=== PATIENT | female | born 2000 | race Caucasian/White ===

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

== ENCOUNTER 2020-02-11 00:07 | Emergency (ER) | payer SELFPAY ==
[~2020-02-11] VITALS: Ht 175 cm; Wt 81.0 kg
[~2020-02-11 00:07] MED LIST: CEPH500T PO; MEDR150D6; PRD20T PO; birth control
[2020-02-11] MEDS ORDERED: LACTATED RINGERS 1,000 ML IV ONE (00:11)
--- OUTSIDE RECORDS SUMMARY | 2020-02-11 00:14 | XMS REPORT ---
Author Author Brandi SAVAGE [facility] Address [address] [place], [place] [address] Care Team Providers Care Mapping Engineer Name Role Phone SONNY SAVAGE PCP SONNY SAVAGE PreferredProvider Allergies and Adverse Reactions Name Reaction Notes Xanax vomiting Plan of Treatment Not available. Medications Active Name Start Date Estimated Completion Date SIG Co mments Viibryd 10 mg (7)- 20 mg (23) oral tablets,dose pack 09/09/2019 take as directed Depo-Provera 150 mg/mL intramuscular suspension 09/09/2019 inject 150 mg by intramuscular route every 3 months Name Start Date Expiration Date SIG Comments Xanax 0.25 mg oral tablet 08/02/2017 09/01/2017 take 1 tablet (0.25 mg) by oral route BID PRN anxiety prednisone 20 mg oral tablet 08/06/2018 08/22/2018 4X2 days 3x2 days 2x2 days 1x2 days Discontinued Name Start Date Discontinued Date SIG Comments citalopram 20 mg oral tablet 09/06/2017 09/18/2018 daniel e 1 tablet (20 mg) by oral route once daily for 90 days Problem List Not available. Vital Signs Date Time BP-Sys(mm[Hg] BP-Princess(mm[Hg]) HR(bpm) RR(rpm) Temp WT HT HC BMI BSA BMI Percentile O2 Sat(%) 09/10/2019 2:01:00 PM 128 mm[Hg] 78 mm[Hg] 94 {beats}/min 18 rpm 98.4 F 164.062 lbs 69 in 24.2275 kg/m2 1.9034 m2 75 % 99 % 02/24/2019 2:56:00 PM 110 mm[Hg] 60 mm[Hg] 68 {beats}/min 16 rpm 98.4 F 163 lbs 98 % 12/13/2018 8:38:00 AM 122 mm[Hg] 72 mm[Hg] 78 {beats}/min 18 rpm 98.1 F 156 lbs 69 in 23.0369 kg/m2 1.856 m2 67.5 % 98 % 09/18/2018 9:19:00 AM 112 mm[Hg] 66 mm[Hg] 67 {beats}/min 98.1 F 15 5 lbs 69 in 22.89 kg/m2 1.85 m2 66.9 % 98 % 08/06/2018 1:36:00 PM 126 mm[Hg] 72 mm[Hg] 74 {beats}/min 18 rpm 98.2 F 155 lbs 69 in 22.8893 kg/m2 1.8501 m2 67.2 % 99 % 07/11/2018 10:57:00 AM 120 mm[Hg] 72 mm[Hg] 82 {beats}/min 18 rpm 99.3 F 152 lbs 69 in 22.45 kg/m2 1.83 m2 63.2 % 98 % 04/15/2018 9:11:00 AM 120 mm[Hg] 80 mm[Hg] 78 {beats}/min 98 rpm 98.6 F 155 lbs 69 in 22.8893 kg/m2 1.8501 m2 68.2 % 98 % 08/02/2017 4:10:00 PM 104 mm[Hg] 78 mm[Hg] 82 {beats}/min 16 rpm 98 F 144 lbs 69 in 21.2649 kg/m2 1.78 m2 54 % 99 % Social History Name Description Comments Single Tobacco Never smoker Alcohol Never Uses seatbelts History of Procedures Date Ordered Description Order Status 07/11/2018 12:00 AM THERAPEUTIC PROPHYLACTIC/DX INJECTION CHEEK BQ/IM Reviewed 07/11/2018 12:00 AM Decadron 8mg Injection, [facility] Medicaid Rev iewed 07/11/2018 12:00 AM Depo-Medrol 80 Mg Injection, [facility] Medicai d Reviewed 07/16/2018 12:00 AM X-RAY EXAM NECK SPINE 2-3 VW Returned 09/18/2018 12:00 AM X-RAY EXAM L-2 SPINE 4/>VWS Returned 12/13/2018 12:00 AM Splint, prefabricated, wrist or ankle Re viewed Results Summary Not available. History Of Immunizations Not available. History of Past Illness Name Date of Onset Comments No significant medical history Test anxiety Aug 02 2017 4:10PM Stress Aug 02 2017 4:10PM Encounter for routine child health examination without abnormal findings Apr 15 2018 9:11AM Gastroenteritis Jul 11 2018 10:58AM Non-intractable vomiting with nausea, unspecified vomi ting type Jul 11 2018 10:58AM Mild Chronic Cervicalgia Jul 11 2018 10:58AM Cervicalgia Jul 16 2018 8:03AM Neck pain Aug 06 2018 1:37PM Moderate Acute Mid back pain Unresponsive to treatment Aug 06 2018 1:37PM Moderate Acute Cervicalgia Unresponsive to treatment Aug 06 2018 1:37PM Tension headache Aug 06 2018 1:37PM Lumbago without sciatica Sep 18 2018 9:23AM Cervicalgia Sep 18 2018 9:23AM Cervicogenic headache Sep 18 2018 9:23AM Spasm Sep 18 2018 9:23AM Sprain of unspecified ligament of right ankle, initial encounter Dec 13 2018 8:38AM Strain of unspecified muscle and tendon at ankle and foot level, right foot, initial encounter Dec 13 2018 8:38AM Ankle pain, right Dec 13 2018 8:38AM Mild Acute Left Costal chondritis Feb 24 2019 2:57PM 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 Sep 10 2019 2:02PM Current mild episode of major depressive disorder, unspecified whether recurrent Sep 10 2019 2:02PM Encounter for initial prescription of injectable contr aceptive Sep 10 2019 2:02PM Payers Insurance Name Company Name Plan Name Plan Number Policy Number [place] [employer] Group Number Start Date [facility] Fin ancial Timothy 50 PERCENT October [facility] [id number] N/A [facility] [id number] N/A History of Encounters Visit Date Visit Type Provider 09/09/2019 Office visit SONNY GRAHAM 02/24/2019 Office visit SONNY GRAHAM 12/13/2018 Office visit SONNY GRAHAM 09/18/2018 Office visit Iggy Fox DO 08/06/2018 Office visit SONNY GRAHAM 07/11/2018 Office visit SONNY GRAHAM 04/15/2018 Office visit SONNY GRAHAM 08/02/2017 Office visit SONNY GRAHAM
--- OUTSIDE RECORDS SUMMARY | 2020-02-11 00:14 | XMS REPORT ---
Author Author Brandi RICHARDSON [facility] Address [address] [place] [address] Care Team Providers Care Engineering Mathematician Name Role Phone AUSTIN RICHARDSON Unavailable PROBLEMS Type Condition ICD9-CM Code [id number] Code Onset Dates Condition S tatus SNOMED Code Problem Amenorrhea N91.2 Active 10856072 Problem Irregular menstrual bleeding N92.6 A ctive 27913762 Problem Other atopic dermatitis and related conditions L20 .89 Active 55758478 Problem Rhinosinusitis J32.9 Active 66638 4004 ALLERGIES No Information ENCOUNTERS Encounter Location Date Diagnosis [facility] [id number] [place] [phone] Dec, [facility] [id number] [place] [phone] Dec, Irregular menstrual bleeding N92.6 and Trying to get Z78.9 [id number] [place] [address] [phone] Dec, [facility] [id number] [place], [place] [id number] 2-4001 Nov, Pain of both breasts N64.4 [facility] [address] [place], [place] [id number] [place], [place] [address] 2-4001 Sep, Dizzy R42 and Amenorrhea N91.2 [facility] [address] [facility] [id number] [address] [place] [address] Sep, Rhinosinusitis J32.9 [facility] [address] [facility] [id number] [place] [id number] Jul, Contraception management Z30.9 and Contr aceptive education Z30.[id number] [id number] [id number] Nov, Oral health maintenance status requiring routine preventive dental care K08.9 [facility] [address] [id number] [id number] Jul, Oral health maintenance status requiring routine preventive dental care K08.9 and Dental examination Z01.20 [facility] [address] [facility] [id number] [address] [place] [phone] January, [facility] [address] [facility] [id number] [address] [place] [phone] Apr, Sports physical Z02.5 ; Exer cise counseling Z71.89 and Dietary counseling Z71.3 [facility] [id number] [place] [phone] Nov, Body aches R52 and Fever and chills R50. 9 [facility] [address] [facility] [id number] [place] [id number] Apr, Sports physical Z02.5 ; Diet juaquin counseling Z71.3 and Exercise counseling Z71.89 [facility] [address] [facility] [id number] [address] [place] [phone] Apr, Sports physical V70.3 and [place] RDASIL (HPV) DX V04.89 [facility] [address] [facility] [id number] [address] [place] [phone] Dec, [facility] [address] [facility] [id number] [address] [place] [address] Dec, [facility] [address] [facility] [id number] [address] [place] [phone] Nov, [facility] [address] [facility] [id number] [address] [place] [phone] Nov, [facility] [address] [facility] [id number] [address] [place] [address] Nov, [facility] [address] [facility] [id number] [address] [place] [phone] Nov, [facility] [address] [id number] [address] [place] [phone] Nov, [facility] [address] [id number] [address] [place] [phone] Nov, [facility] [address] [id number] [address] [place] [phone] Apr, [facility] [address] [id number] [address] [place] [phone] Apr, [facility] [address] [id number] [address] [place] [phone] Sep, [facility] [address] [id number] [address] [place] [phone] Sep, [facility] [address] [id number] [address] [place] [phone] January, [facility] [address] [id number] [address] [place] [phone] Nov, [facility] [address] [id number] [address] [place] [phone] Jul, [facility] [address] [id number] [address] [place] [phone] Mar, IMMUNIZATIONS No Known Immunizations SOCIAL HISTORY Never Assessed REASON FOR VISIT PLAN OF CARE VITAL SIGNS Height 67.5 in 2014-04-15 Weight 123.9 lbs 2014-04-15 Temperature 98 degrees Fahrenheit 2014-04-15 Heart Rate 72 bpm 2014-04-15 Respiratory Rate 18 2014-04-15 Blood pressure systolic 116 mmHg 2014-04-15 Blood pressure diastolic 70 mmHg 2014-04-15 MEDICATIONS Unknown Medications RESULTS No Results PROCEDURES Procedure Date Ordered Result Body Site VISUAL ACUITY SCREEN Apr 15, 2014 INSTRUCTIONS MEDICATIONS ADMINISTERED No Known Medications MEDICAL (GENERAL) HISTORY Type Description Date Surgical History none Hospitalization History n/a
--- OUTSIDE RECORDS SUMMARY | 2020-02-11 00:14 | XMS REPORT ---
Author Author Brandi MESA Organization [facility] Address [address] [place] [address] Care Team Providers Care Foreign Exchange Student Coordinator Name Role Phone HANH MESA Unavailable PROBLEMS Type Condition ICD9-CM Code [id number] Code Onset Dates Condition S tatus SNOMED Code Problem Amenorrhea N91.2 Active 43551936 Problem Irregular menstrual bleeding N92.6 A ctive 53942906 Problem Other atopic dermatitis and related conditions L20 .89 Active 63841351 Problem Rhinosinusitis J32.9 Active 21065 4004 ALLERGIES No Information ENCOUNTERS Encounter Location Date Diagnosis [facility] [id number] [place] [phone] Dec, [facility] [id number] [place] [address] 2-4001 Dec, Irregular menstrual bleeding N92.6 and Trying to get Z78.9 [facility] [id number] [place] [phone] Dec, [facility] [id number] [place] [address] 6[address] 2-4001 Nov, Pain of both breasts N64.4 [facility] [id number] [place] [address] [phone] Sep, Dizzy R42 and Amenorrhea N91.2 [facility] [id number] [place] [address] Sep, Rhinosinusitis J32.9 [facility] [address] [facility] [id number] Pepito FITZPATRICK S [id number] Jul, Contraception management Z30.9 and Contr aceptive education Z30.09 [facility] [address] [id number] [id number] Nov, Oral health maintenance status requiring routine preventive dental care K08.9 [facility] [address] [id number] [id number] Jul, Oral health maintenance status requiring routine preventive dental care K08.9 and Dental examination Z01.20 [facility] [address] [facility] [id number] [address] [place] [phone] January, [facility] [address] [facility] [id number] [address] [place] [phone] Apr, Sports physical Z02.5 ; Exer cise counseling Z71.89 and Dietary counseling Z71.3 [facility] X[id number] [place] [phone] Nov, Body aches R52 and Fever and chills R50. 9 [facility] [address] [facility] [id number] [place] [id number] Apr, Sports physical Z02.5 ; Diet juaquin counseling Z71.3 and Exercise counseling Z71.89 [facility] [address] [facility] [id number] [address] [place] [phone] Apr, Sports physical V70.3 and [place] RDASIL (HPV) DX V04.89 [facility] [address] [facility] [id number] [address] [place] [phone] Dec, [facility] [address] [facility] [id number] [address] [place] [phone] Dec, [facility] [address] [facility] [id number] [address] [place] [phone] Nov, [facility] [address] [facility] [id number] [address] [place] [phone] Nov, [facility] [address] [facility] [id number] [address] [place] [phone] Nov, [facility] [address] [facility] [id number] [address] [place] [phone] Nov, [facility] [address] [id number] [address] [place] [phone] Nov, [facility] [address] [id number] [address] [place] [phone] Nov, [facility] [address] [id number] [address] [place] [phone] Apr, [facility] [address] [id number] [address] [place] [phone] Apr, [facility] [address] [id number] [address] [place] [phone] Sep, [facility] [address] [id number] [address] [place] [phone] Sep, [facility] [address] [id number] [address] [place] [phone] January, [facility] [address] [id number] [address] [place] [phone] Nov, [facility] [address] [id number] [address] [place] [phone] Jul, [facility] [address] [id number] [address] [place] [phone] Mar, IMMUNIZATIONS No Known Immunizations SOCIAL HISTORY Never Assessed REASON FOR VISIT PLAN OF CARE VITAL SIGNS Weight 124.6 lbs 2013-09-06 Temperature 98.1 degrees Fahrenheit 2013-09-06 Heart Rate 80 bpm 2013-09-06 Respiratory Rate 18 2013-09-06 Blood pressure systolic 107 mmHg 2013-09-06 Blood pressure diastolic 68 mmHg 2013-09-06 MEDICATIONS Unknown Medications RESULTS No Results PROCEDURES No Known procedures INSTRUCTIONS MEDICATIONS ADMINISTERED No Known Medications MEDICAL (GENERAL) HISTORY Type Description Date Surgical History none Hospitalization History n/a
--- OUTSIDE RECORDS SUMMARY | 2020-02-11 00:14 | XMS REPORT ---
Author Author Brandi BOONE [facility] Address [address] [place] [address] Care Team Providers Care Title Processor Name Role Phone COLT BOONE Unavailable PROBLEMS Type Condition ICD9-CM Code OIK95-XB Code Onset Dates Condition S tatus SNOMED Code Problem Amenorrhea N91.2 Active 11380748 Problem Irregular menstrual bleeding N92.6 A ctive 57340140 Problem Other atopic dermatitis and related conditions L20 .89 Active 14325814 Problem Rhinosinusitis J32.9 Active 95640 4004 ALLERGIES No Information ENCOUNTERS Encounter Location Date Diagnosis [facility] [id number] [place] [address] [phone] Dec, 2019 Irregular menstrual bleeding N92.6 and Trying to get Z78.9 [facility] [id number] [place] [address] [phone] Dec, [facility] [id number] [place] [address] [phone] Nov, Pain of both breasts N64.4 [facility] [id number] [place] [address] [phone] Sep, Dizzy R42 and Amenorrhea N91.2 [facility] [address] [facility] [id number] [address] [address] Sep, Rhinosinusitis J32.9 [facility] [address] [id number] [place] [id number] 13 Jul, 2019 Contraception management Z30.9 and Contr aceptive education Z30.09 [facility] [address] [facility] [id number] [id number] Nov, Oral health maintenance status requiring routine preventive dental care K08.9 [facility] [address] [facility] [id number] [place] [id number] 13 Jul, 2018 Oral health maintenance status requiring routine preventive dental care K08.9 and Dental examination Z01.20 [facility] [address] [facility] [id number] [address] [place] [phone] 24 Jan, 2018 [facility] [address] [facility] [id number] [address] [place] [phone] 14 Apr, 2017 Sports physical Z02.5 ; Exer cise counseling Z71.89 and Dietary counseling Z71.3 [facility] XUAN [employer]is [employer] [id number] [place] [phone] 17 Nov, 2016 Body aches R52 and Fever and chills R50. 9 [facility] [address] [facility] [id number] [place] [phone] Apr, Sports physical Z02.5 ; Diet juaquin counseling Z71.3 and Exercise counseling Z71.89 [facility] [address] [facility] [id number] [address] [place] [phone] Apr, Sports physical V70.3 and GA RDASIL (HPV) DX V04.89 [facility] [address] [facility] [id number] [address] [place] [phone] Dec, [facility] [address] [facility] [id number] [address] [place] [phone] Dec, [facility] [address] [facility] [id number] [address] [place] [phone] Nov, [facility] [address] [facility] [id number] [address] [place] [phone] Nov, [facility] [address] [facility] [id number] [address] [place] [phone] Nov, [facility] [address] [facility] [id number] [address] [place] [phone] Nov, [facility] [address] [facility] [id number] [address] [place] [phone] Nov, [facility] [address] [id number] [address] [place] [phone] Nov, [facility] [address] [id number] [address] [place] [phone] Apr, [facility] [address] [id number] [address] [place] [phone] Apr, [facility] [address] [id number] [address] [place] [phone] Sep, [facility] [address] [id number] [address] [place] [phone] Sep, [facility] [address] [id number] [address] [place] [phone] January, [facility] [address] [id number] [address] [place] [phone] Nov, [facility] [address] [id number] [address] [place] [phone] Jul, [facility] [address] [id number] [address] [place] [phone] Mar, IMMUNIZATIONS No Known Immunizations SOCIAL HISTORY Never Assessed REASON FOR VISIT Fluoride PLAN OF CARE Activity Details Follow Up prn Reason: VITAL SIGNS MEDICATIONS No Known Medications RESULTS No Results PROCEDURES Procedure Date Ordered Result Body Site TOPICAL FLUORIDE VARNISH November 20, 2018 INSTRUCTIONS MEDICATIONS ADMINISTERED No Known Medications MEDICAL (GENERAL) HISTORY Type Description Date Surgical History none Hospitalization History n/a
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
[2020-02-11 00:43] LABS: BILIRUBIN,URINE NEGATIVE (NEGATIVE); CLARITY,URINE SL CLOUDY; COLOR,URINE YELLOW; GLUCOSE, URINE (UA) NEGATIVE (NEGATIVE); KETONES,URINE NEGATIVE (NEGATIVE); LEUKOCYTE ESTERASE ,URINE TRACE (NEGATIVE); NITRITE,URINE NEGATIVE (NEGATIVE); PROTEIN,URINE NEGATIVE (NEGATIVE)
[2020-02-11 00:59] LABS: BASOPHILS % (AUTO) 0 % (0-10); EOSINOPHILS # (AUTO) 0.2 10^3/uL (0.0-0.3); EOSINOPHILS % (AUTO) 2 % (0-10); HEMATOCRIT 39 % (35-52); HEMOGLOBIN 13.3 G/DL (11.5-16.0); LYMPHOCYTES # (AUTO) 1.4 X 10^3 (1.0-4.0); LYMPHOCYTES % (AUTO) 18 % (12-44); MEAN CORPUSCULAR HEMOGLOBIN 28 PG (25-34); MEAN CORPUSCULAR HGB CONC 34 G/DL (32-36); MEAN CORPUSCULAR VOLUME 81 FL (80-99); MEAN PLATELET VOLUME 11.7 FL (7.4-10.4); MONOCYTES # (AUTO) 0.5 X 10^3 (0.0-1.0); MONOCYTES % (AUTO) 6 % (0-12); NEUTROPHILS # (AUTO) 6.1 X 10^3 (1.8-7.8); NEUTROPHILS % (AUTO) 74 % (42-75); PLATELET COUNT 244 10^3/uL (130-400); RED CELL DISTRIBUTION WIDTH 13.5 % (10.0-14.5); WHITE BLOOD COUNT 8.3 10^3/uL (4.3-11.0)
[2020-02-11 01:03] LABS: CHLORIDE 109 MMOL/L (98-107); POTASSIUM 3.8 MMOL/L (3.6-5.0); SODIUM 140 MMOL/L (135-145)
[2020-02-11 01:04] LABS: ALBUMIN 4.2 GM/DL (3.2-4.5)
[2020-02-11 01:05] LABS: CALCIUM 9.1 MG/DL (8.5-10.1)
[2020-02-11 01:06] LABS: GLUCOSE 107 MG/DL (70-105); TOTAL PROTEIN 7.5 GM/DL (6.4-8.2)
[2020-02-11 01:07] LABS: BACTERIA,URINE NEGATIVE /HPF; CARBON DIOXIDE 21 MMOL/L (21-32); RBC,URINE RARE /HPF
[2020-02-11 01:08] LABS: BILIRUBIN,TOTAL 0.3 MG/DL (0.1-1.0)
[2020-02-11 01:09] LABS: AMPHETAMINE SCREEN, URINE NEGATIVE (NEGATIVE); BARBITURATE SCREEN URINE NEGATIVE (NEGATIVE); BENZODIAZEPINES SCREEN URINE NEGATIVE (NEGATIVE); CANNABINOID SCREEN, URINE NEGATIVE (NEGATIVE); COCAINE SCREEN URINE NEGATIVE (NEGATIVE); METHADONE STAT NEGATIVE (NEGATIVE); METHAMPHETAMINE SCREEN URINE S NEGATIVE (NEGATIVE); OPIATE SCREEN URINE NEGATIVE (NEGATIVE); OXYCODONE STAT NEGATIVE (NEGATIVE); PROPOXYPHENE STAT NEGATIVE (NEGATIVE); TRICYCLIC ANTIDEPRESSANTS SCRE NEGATIVE (NEGATIVE)
[2020-02-11 01:10] LABS: ALKALINE PHOSPHATASE 71 U/L (40-136); CREATININE SERUM 0.82 MG/DL (0.60-1.30); GFR ESTIMATED > 60
[2020-02-11 01:11] LABS: ACETAMINOPHEN < 10 UG/ML (10-30); BUN/CREATININE RATIO 18
[2020-02-11 01:13] LABS: ALANINE AMINOTRANSFERASE 35 U/L (0-55); SALICYLATE < 5.0 MG/DL (5.0-20.0)
[2020-02-11 01:33] LABS: TSH (THYROID ANALYZER) 2.16 UIU/ML (0.35-4.94)
== END 2020-02-11 01:47 | disposition home or self-care (01) ==
LOC: EDUNIT# 00:07 → ER 00:09
DX: T45.0X2A Poisoning by antiallergic and antiemetic drugs, intentional self-harm, initial encounter (principal); F32.9 Major depressive disorder, single episode, unspecified; J45.909 Unspecified asthma, uncomplicated; Z79.52 Long term (current) use of systemic steroids
CPT/HCPCS: 36415; 80053; 80306; 80320; 80329; 81000; 84443; 84703; 85025; 93005; 93041

== ENCOUNTER 2020-06-26 18:33 | Emergency (ER) | payer MEDICAID ==
[~2020-06-26] VITALS: Ht 175 cm; Wt 92.5 kg
--- NOTE | 2020-06-26 19:04 | NUR ---
REPORT FROM YAMILET CHAPMAN
--- NOTE | 2020-06-26 20:05 | ED Lower Extremity ---
General Chief Complaint: Lower Extremity Stated Complaint: FOOT PAIN Nursing Triage Note: PT AMB WITH A LIMP TO FT1. REPORTS RIGHT FOOT PAIN X'S 2 DAYS. DENIES KNOWN INJURY. PT IS 8 WEEKS . Nursing Sepsis Screen: No Definite Risk Source: patient Exam Limitations: no limitations History of Present Illness Date Seen by Provider: Jun 26, 2020 Time Seen by Provider: 19:30 Initial Comments This is a healthy-appearing 20-year-old female who presents for left plantar foot pain that has been present for 2 days. Rates pain 7 out of 10, localized to the ball of her foot, describes as sharp in nature, and worse with walking. Reports unknown cause and denies injury. States she has been taking Tylenol only per her DIVISION MANAGER recommendation, as she is 8 weeks . Additionally, she has been elevating her foot and applying ice, states nothing has helped the pain. Denies fever, rash, laceration, loss of sensation, or loss of motor function. Allergies and Home Medications Allergies Coded Allergies: No Known Drug Allergies (Unverified , 10/11/19) Home Medications Cephalexin 500 Mg Tablet, 500 MG PO TID Prescribed by: BHASKAR GARDUNO on 10/11/192134 Prednisone 20 Mg Tab, 40 MG PO DAILY Prescribed by: BHASKAR GARDUNO on 10/11/192134 Patient Home Medication List Home Medication List Reviewed: Yes Review of Systems Constitutional: no symptoms reported EENTM: no symptoms reported Respiratory: no symptoms reported Cardiovascular: no symptoms reported Gastrointestinal: no symptoms reported Genitourinary: no symptoms reported Musculoskeletal: see HPI Skin: no symptoms reported Psychiatric/Neurological: No Symptoms Reported Past Wvkvgbv-Mgmalb-Ewstnm Hx Patient Social History Alcohol Use: Denies Use Recreational Drug Use: No Smoking Status: Never a Smoker 2nd Hand Smoke Exposure: No Recent Foreign Travel: No Contact w/Someone Who Travel: No Recent Infectious Disease Expo: No Recent Hopitalizations: No Immunizations Up To Date Tetanus Booster (TDap): Unknown PED Vaccines UTD: Yes Date of Influenza Vaccine: Jul 13, 2019 Seasonal Allergies Seasonal Allergies: Yes Past Medical History Surgeries: No Respiratory: Yes Asthma Cardiac: No Neurological: No Reproductive Disorders: No Genitourinary: No Gastrointestinal: No Musculoskeletal: No Endocrine: No HEENT: No Cancer: No Psychosocial: Yes Depression Integumentary: No Recent Skin Changes Blood Disorders: No Physical Exam Vital Signs Vital Signs - First Documented 06/26/20 18:45 Temp 37.0 Pulse 94 Resp 20 B/P (MAP) 130/81 (97) Pulse Ox 100 O2 Delivery Room Air Capillary Refill : Less Than 3 Seconds Height, Weight, BMI Height: '" Weight: lbs. oz. kg; 30.00 BMI Method: General Appearance: WD/WN, no apparent distress HEENT: PERRL/EOMI, pharynx normal Neck: full range of motion, normal inspection Cardiovascular: regular rate, rhythm, no murmur Respiratory: lungs clear, normal breath sounds Feet: right foot non-tender; bilateral foot normal inspection, bilateral foot normal range of motion, bilateral foot no evidence of injury Neurologic/Tendon: normal sensation, normal motor functions, normal tendon functions Neurologic/Psychiatric: no motor/sensory deficits, alert, normal mood/affect, oriented x 3 Skin: normal color, warm/dry Progress/Results/Core Measures Results/Orders My Orders Vital Signs/I&O 06/26/20 18:45 Temp 37.0 Pulse 94 Resp 20 B/P (MAP) 130/81 (97) Pulse Ox 100 O2 Delivery Room Air Blood Pressure Mean: 97 Progress Progress Note : Progress Note No evidence of injury or break in skin noted. No bruising or swelling appreciated. Discussed obtaining an x-ray, and states that she would like to have images obtained. Radiology here to take patient for images, while reviewing risks/benefit with patient she declined x-ray. Reviewed the plan of care with her and she is agreeable with plan. Provided her with ice pack and wrapped her foot with Brayan bandage prior to discharge. States Brayan bandage helped reduce the pain. Departure Impression Primary Impression: Metatarsalgia of right foot Disposition: 01 HOME, SELF-CARE Condition: Stable/Unchanged Departure-Patient Inst. Decision time for Depature: 20:10 Referrals: NO,LOCAL PHYSICIAN (PCP/Family) Primary Care Physician Patient Instructions: Metatarsalgia (DC) Add. Discharge Instructions: Plan: 1. Discharge home. 2. May take Tylenol as needed for pain per package instructions. 3. Follow up with your primary care provider if your symptoms persist. 4. Rest, ice 20 minutes at a time every couple hours as needed. Change shoes throughout the day and wear comfortable supportive shoes. 5. Return for any new or concerning symptoms. All discharge instructions reviewed with patient and/or family. Voiced understanding. DEVORA SAVAGE URBAN DESIGNER Jun 26, 2020 20:05
[2020-06-26 20:18] VITALS: BP 0/0
--- NOTE | 2020-06-26 20:18 | NUR ---
PT DISCHARGED TO HOME W/ INSTR BY PROVIDER. NO QUESTIONS UPON DISCHARGE.
== END 2020-06-26 20:18 | disposition home or self-care (01) ==
LOC: EDUNIT# 18:33 → ER 18:34
DX: M77.41 Metatarsalgia, right foot (principal); J45.909 Unspecified asthma, uncomplicated; Z79.52 Long term (current) use of systemic steroids

== ENCOUNTER 2020-08-02 08:41 | Emergency (ER) | payer MEDICAID ==
[~2020-08-02] VITALS: Ht 175 cm; Wt 89.0 kg
--- NOTE | 2020-08-02 09:00 | ED GU-Female ---
General Chief Complaint: General Problems/Pain Stated Complaint: CP,L BACK PAIN,13 WKS Nursing Triage Note: STATES SHE HAS STERNAL PAIN AFTER VOMITING AND IS HAVING LOWER BACK PAIN X2 DAYS. PT IS 14 WEEKS GESTATION. Nursing Sepsis Screen: No Definite Risk Source: patient Exam Limitations: no limitations History of Present Illness Date Seen by Provider: Aug 02, 2020 Time Seen by Provider: 08:46 Initial Comments Patient presents ER by private conveyance with chief complaint of lower back pain mild dysuria for the past 1-2 days. She thinks she has a UTI. She is with a last menstrual period and ultrasound through Dr. Chauhan demonstrating an EDC of February 04, 2021 or 13 weeks and 3 days. She is not having any fever cough sweats or shortness of air. Patient said she was having some vomiting related to her her hyperemesis gravidarum causing her sternum to hurt. She took a hot shower and that did not make it feel better. She says it is reproducible on movement or direct touch. She does not take any antacids but she took a dose of Tylenol 1 hour ago and now her pain is almost completely gone. She is on pyridoxine and Dramamine but she is out of this medicine. She takes pyridoxine 25 mg 3 times a day. Allergies and Home Medications Allergies Coded Allergies: No Known Drug Allergies (Unverified , 10/11/19) Home Medications Cephalexin 500 Mg Tablet, 500 MG PO TID Prescribed by: BHASKAR GARDUNO on 10/11/192134 Prednisone 20 Mg Tab, 40 MG PO DAILY Prescribed by: BHASKAR GARDUNO on 10/11/192134 Patient Home Medication List Home Medication List Reviewed: Yes Review of Systems Review of Systems Constitutional: No chills, No diaphoresis EENTM: No ear discharge, No ear pain Respiratory: No cough, No short of breath Cardiovascular: see HPI, chest pain; No edema Gastrointestinal: No abdominal pain; nausea, vomiting Genitourinary: burning, dysuria; denies flank pain Musculoskeletal: No back pain, No joint pain All Other Systemes Reviewed Negative Unless Noted: Yes Past Iuredfw-Zelsmr-Bpsdrq Hx Patient Social History Alcohol Use: Denies Use Recreational Drug Use: No Smoking Status: Never a Smoker 2nd Hand Smoke Exposure: No Recent Foreign Travel: No Contact w/Someone Who Travel: No Recent Infectious Disease Expo: No Recent Hopitalizations: No Immunizations Up To Date Tetanus Booster (TDap): Unknown PED Vaccines UTD: Yes Date of Influenza Vaccine: Jul 13, 2019 Seasonal Allergies Seasonal Allergies: Yes Past Medical History Surgeries: No Respiratory: Yes Asthma Cardiac: No Neurological: No : Yes Reproductive Disorders: No Genitourinary: No Gastrointestinal: No Musculoskeletal: No Endocrine: No HEENT: No Cancer: No Psychosocial: Yes Depression Integumentary: No Recent Skin Changes Blood Disorders: No Physical Exam Vital Signs Vital Signs - First Documented 08/02/20 08:45 Temp 37.0 Pulse 86 Resp 16 B/P (MAP) 129/78 (95) Pulse Ox 95 O2 Delivery Room Air Capillary Refill : Less Than 3 Seconds Height, Weight, BMI Height: '" Weight: lbs. oz. kg; 29.00 BMI Method: General Appearance: WD/WN, no apparent distress HEENT: PERRL/EOMI, normal ENT inspection, pharynx normal Neck: full range of motion, supple, normal inspection Cardiovascular: normal peripheral pulses, regular rate, rhythm Respiratory: No chest non-tender; lungs clear, normal breath sounds, no respiratory distress, no accessory muscle use Gastrointestinal: normal bowel sounds, non tender, soft Neurologic/Psychiatric: alert, oriented x 3 Skin: normal color, warm/dry Progress/Results/Core Measures Suspected Sepsis Recent Fever Within 48 Hours: No Infection Criteria Present: Suspected New Infection New/Unexplained Altered Menta: No Sepsis Screen: No Definite Risk SIRS Temperature: Pulse: 86 Respiratory Rate: 16 Blood Pressure 129 /78 Mean: 95 Results/Orders Lab Results Laboratory Tests Test 08/02/20 08:57 Range/Units Urine Color YELLOW Urine Clarity CLEAR Urine pH 7.0 5-9 Urine Specific [place] 1.020 1.016-1.022 Urine Protein 1+ H NEGATIVE Urine Glucose (UA) NEGATIVE NEGATIVE Urine Ketones NEGATIVE NEGATIVE Urine Nitrite NEGATIVE NEGATIVE Urine Bilirubin NEGATIVE NEGATIVE Urine Urobilinogen 0.2 < = 1.0 MG/DL Urine Leukocyte Esterase TRACE H NEGATIVE Urine RBC (Auto) NEGATIVE NEGATIVE Urine RBC NONE /HPF Urine WBC 5-10 H /HPF Urine Squamous Epithelial Cells 25-50 H /HPF Urine Crystals NONE /LPF Urine Bacteria MODERATE H /HPF Urine Casts NONE /LPF Urine Mucus SMALL H /LPF Urine Culture Indicated YES My Orders Orders - ALHAJI CUMMINGS Ua Culture If Indicated (08/02/20 08:47) Urine Culture (08/02/20 08:57) Vital Signs/I&O 08/02/20 08:45 Temp 37.0 Pulse 86 Resp 16 B/P (MAP) 129/78 (95) Pulse Ox 95 O2 Delivery Room Air Capillary Refill : Less Than 3 Seconds Blood Pressure Mean: 95 Progress Note : Time: 09:04 Progress Note Vital signs are normal she does not appear to be dehydrated at this time. We'll get a urinalysis. We will increase her pyridoxine to 100 mg in the morning and 25 mg 3 times a day when necessary nausea and give her another prescription for doxylamine. Departure Impression Primary Impression: UTI (urinary tract infection) Qualified Codes: N30.00 - Acute cystitis without hematuria Disposition: HOME, SELF-CARE Condition: Stable Departure-Patient Inst. Decision time for Depature: 09:39 Referrals: ALPA CHAUHAN MD (PCP/Family) Primary Care Physician Patient Instructions: Urinary Tract Infection, Adult (DC) Add. Discharge Instructions: Drink plenty of fluids. Use topical creams such as icy hot or Biofreeze for your chest wall pain. Tylenol 1000 mg every 8 hours as necessary for back pain or chest pain. Pyridoxine 100 mg every morning and then 25 mg up to 3 times a day as necessary for nausea. Doxylamine 25 mg 3 times a day when necessary nausea or vomiting. Follow-up with Dr. Chauhan as necessary. Keflex one capsule twice a day for the next week. All discharge instructions reviewed with patient and/or family. Voiced understanding. Scripts Cephalexin (Cephalexin) 500 Mg Tablet 500 MG PO BID for 7 Days, #14 TAB 0 Refills Prov: ALHAJI CUMMINGS 08/02/20 Pyridoxine HCl (Vitamin B-6) 100 Mg Tablet 100 MG PO DAILY for 30 Days, #30 TAB 0 Refills Prov: ALHAJI CUMMINGS 08/02/20 Doxylamine Succinate (Sleep Aid) 25 Mg Tablet 25 MG PO TID PRN for NAUSEA/VOMITING-1ST LINE for 30 Days, #60 TAB 0 Refills Prov: ALHAJI CUMMINGS 08/02/20 ALHAJI CUMMINGS Aug 02, 2020 09:00
[2020-08-02 09:01] LABS: BILIRUBIN,URINE NEGATIVE (NEGATIVE); CLARITY,URINE CLEAR; COLOR,URINE YELLOW; GLUCOSE, URINE (UA) NEGATIVE (NEGATIVE); KETONES,URINE NEGATIVE (NEGATIVE); LEUKOCYTE ESTERASE ,URINE TRACE (NEGATIVE); NITRITE,URINE NEGATIVE (NEGATIVE); PROTEIN,URINE 1+ (NEGATIVE)
[2020-08-02 09:24] LABS: BACTERIA,URINE MODERATE /HPF; SQUAMOUS EPITHELIAL CELL,UR 25-50 /HPF
[2020-08-02] MEDS ORDERED: CEPH500T PO (09:45)
[2020-08-02] MEDS ORDERED: DOXY25TA50 PO (09:45)
[2020-08-02] MEDS ORDERED: PYRI100T10 PO (09:45)
--- NOTE | 2020-08-02 09:51 | NUR ---
IN ROOM AT THIS TIME.
[2020-08-02 10:00] VITALS: BP 129/78
--- NOTE | 2020-08-02 10:00 | NUR ---
PT WITH SMALL AMOUNT OF VOMIT IN BUCKET. I ASKED IF SHE WOULD LIKE SOMETHING FOR NAUSEA BEFORE SHE GOES ET SHE STATES SHE WILL PICK IT UP AT THE PHARMACY.
== END 2020-08-02 10:00 | disposition home or self-care (01) ==
LOC: EDUNIT# 08:41 → ER 08:44
DX: O23.41 Unspecified infection of urinary tract in pregnancy, first trimester (principal); O99.511 Diseases of the respiratory system complicating pregnancy, first trimester; J45.909 Unspecified asthma, uncomplicated; Z79.52 Long term (current) use of systemic steroids; Z3A.13 13 weeks gestation of pregnancy
CPT/HCPCS: 81000; 87088; 99282

== ENCOUNTER 2020-09-21 21:30 | Outpatient (CLI) | payer MEDICAID ==
[~2020-09-21] VITALS: Ht 175.3 cm; Wt 97.1 kg
[~2020-09-21 21:30] MED LIST changes: +DOXY25TA50 PO; +PYRI100T10 PO
--- NOTE | 2020-09-21 21:37 | NUR ---
MARIA E WISE presented to unit via AMBULATION from ED, accompanied by MEDICAL TECHNOLOGIST BLOOD BANK, with c/o ABDOMINAL PAIN. MARIA E WISE weighed, gowned, voided, and to bed. EFHM and TOCO applied, VS taken. MARIA E WISE oriented to bed controls, call light, TV, heat, and A/C controls.
[2020-09-21] MEDS ORDERED: DIME50TA83 PO (21:45)
[2020-09-21] MEDS ORDERED: ACET-2267 PO (21:45)
[2020-09-21] MEDS ORDERED: PREN-142 PO (21:45)
[2020-09-21 21:50] LABS: BILIRUBIN,URINE NEGATIVE (NEGATIVE); CLARITY,URINE CLEAR; COLOR,URINE YELLOW; GLUCOSE, URINE (UA) NEGATIVE (NEGATIVE); KETONES,URINE NEGATIVE (NEGATIVE); LEUKOCYTE ESTERASE ,URINE NEGATIVE (NEGATIVE); NITRITE,URINE NEGATIVE (NEGATIVE); PROTEIN,URINE NEGATIVE (NEGATIVE)
[2020-09-21 21:51] VITALS: BP 133/76
[2020-09-21 21:59] LABS: BACTERIA,URINE TRACE /HPF; RBC,URINE RARE /HPF; SQUAMOUS EPITHELIAL CELL,UR 25-50 /HPF; WBC,URINE 0-2 /HPF
--- NOTE | 2020-09-21 22:09 | NUR ---
D/C instructions given & explained per Lena Lantigua RN, pt. verbalized understanding & signed, copy of D/C instructions to pt. Pt. left [facility] ambulatory on own, to home via private vehicle.
--- NOTE | 2020-09-22 09:01 | Physician Query-Final Dx ---
ALESSANDRA RODRIGUEZ 09/22/20 0901: Clinic Account Progress/Dx Physician Query: Please give diagnosis Please include # weeks gestation Date of Service Sep 21, 2020 at 21:30 ALPA GAO MD 09/22/20 1112: Clinic Account Progress/Dx DIAGNOSIS: Diagnosis 21 weeks with false labor ALESSANDRA RODRIGUEZ Sep 22, 2020 09:01 ALPA GAO MD Sep 22, 2020 11:12
== END 2020-09-21 22:09 | disposition home or self-care (01) ==
LOC: WSo 21:30 → LDRP 21:31 → WSo 22:09
PROVIDERS: ATTEND Obstetrics & Gynecology
DX: O26.892 Other specified pregnancy related conditions, second trimester (principal); Z3A.21 21 weeks gestation of pregnancy
CPT/HCPCS: 81000; G0463; 99212

== ENCOUNTER → 2021-01-10 | Outpatient (CLI) | payer MEDICAID ==
[~2021-01-10] MED LIST changes: +ACET-2267 PO; +DIME50TA83 PO; +PREN-142 PO
[2021-01-10 18:02] LABS: HEMOGLOBIN 11.4 g/dL (11.5-16.0); MEAN PLATELET VOLUME 12.8 fL (9.0-12.2); WHITE BLOOD COUNT 12.1 10^3/uL (4.3-11.0)
[2021-01-10 18:13] LABS: ALBUMIN 3.5 GM/DL (3.2-4.5)
[2021-01-10 18:14] LABS: CHLORIDE 105 MMOL/L (98-107); POTASSIUM 4.1 MMOL/L (3.6-5.0); SODIUM 135 MMOL/L (135-145)
[2021-01-10 18:15] LABS: CALCIUM 9.6 MG/DL (8.5-10.1)
[2021-01-10 18:16] LABS: GLUCOSE 84 MG/DL (70-105); TOTAL PROTEIN 7.4 GM/DL (6.4-8.2)
[2021-01-10 18:17] LABS: CARBON DIOXIDE 15 MMOL/L (21-32)
[2021-01-10 18:18] LABS: BILIRUBIN,TOTAL 0.3 MG/DL (0.1-1.0)
[2021-01-10 18:19] LABS: ALKALINE PHOSPHATASE 173 U/L (40-136)
[2021-01-10 18:20] LABS: GFR ESTIMATED > 60
[2021-01-10 18:21] LABS: BUN/CREATININE RATIO 7
[2021-01-10 18:23] LABS: ALANINE AMINOTRANSFERASE 30 U/L (0-55); URIC ACID 5.3 MG/DL (2.6-7.2)
== END ==
LOC: LABNPT 17:52
PROVIDERS: ATTEND Obstetrics & Gynecology
DX: O26.619 Liver and biliary tract disorders in pregnancy, unspecified trimester (principal); O13.9 Gestational [pregnancy-induced] hypertension without significant proteinuria, unspecified trimester; Z3A.00 Weeks of gestation of pregnancy not specified
CPT/HCPCS: 80053; 82570; 83615; 83789; 84156; 84550; 85027

== ENCOUNTER 2021-01-16 20:34 | Observation (INO) | payer MEDICAID ==
[~2021-01-16 20:34] MED LIST changes: +DOCU-143 PO; +IBUP-1780 PO; +OXYC1TAB12 PO
[2021-01-16] MEDS ORDERED: oxyCODONE/APAP 10/325MG (PERCOCET 10) TABLET PO ONE (20:41)
[2021-01-16] MEDS ORDERED: ONDANSETRON 4 MG (ZOFRAN) ORAL DISSOLVE TAB PO PRN (20:45)
[2021-01-16 20:50] VITALS: BP 124/59
[2021-01-16 20:55] VITALS: BP 124/59
[2021-01-16] MEDS: oxyCODONE/APAP 10/325MG (PERCOCET 10) TABLET PO PRN (20:58)
[2021-01-16] MEDS: DOCUSATE SODIUM 100 MG (COLACE) CAP PO SCH (21:07)
[2021-01-17 02:52] VITALS: BP 127/69
[2021-01-17] MEDS: IBUPROFEN 800 MG (MOTRIN) TAB PO SCH ×4 (02:52→20:57)
[2021-01-17] MEDS: oxyCODONE/APAP 10/325MG (PERCOCET 10) TABLET PO PRN ×4 (03:38→18:58)
--- NOTE | 2021-01-17 08:29 | History & Physical ---
History and Physical Date Seen by Provider: January 17, 2021 Time Seen by Provider: 07:15 This patient is a 20-year-old 1 now para 1 white female who underwent delivery on January 14, 2021. She was discharged home yesterday. She was unable to obtain her pain medication and return with complaint of severe pain and no option for pain control. She was readmitted for observation and pain management. She was started back on Percocet Motrin and we added Colace for bowel kinesis. This morning the patient reports that her pain is tolerable. He does feel like it has been difficult to get the pain under control due to the lapse in her pain medication. She is ambulating and tolerating oral intake. Patient is voiding. Patient does not feel ready for discharge. Allergies are none Medications on admission were supposed to be Percocet Motrin and Colace but patient was not able to fill her prescription so she was on nothing Medical social and surgical histories are per her antepartum record HEENT exam is normal Neck is supple no lymphadenopathy no thyromegaly Abdomen soft tender primarily around the scar/incision but not inappropriately so There are no signs symptoms were indications of infection of the incision Extremities show no clubbing cyanosis. There is no Homans' sign. Assessment and plan this is postoperative day #3 from a delivery on January 14 patient had been discharged home on postoperative day #2 but was readmitted for pain control. We will continue observation and pain management through the day and consider discharge home tomorrow Postop day 3 status post admitted for pain control Allergies and Home Medications Allergies Coded Allergies: No Known Drug Allergies (Unverified , 10/11/19) Home Medications Acetaminophen 500 Mg Tablet, 1,000 MG PO PRN, (Reported) Docusate Sodium 100 Mg Capsule, 100 MG PO BID Prescribed by: ALPA AMEZQUITA on 01/14/211816 Ibuprofen 800 Mg Tablet, 800 MG PO Q6H PRN for PAIN Prescribed by: ALPA AMEZQUITA on 01/14/211816 Oxycodone HCl/Acetaminophen 1 Each Tablet, 1 TAB PO Q4H PRN for PAIN-MODERATE Prescribed by: ALPA AMEZQUITA on 01/14/211816 Vit No.124/Iron/FA 1 Each Tablet, 1 EACH PO DAILY, (Reported) Patient Home Medication List Home Medication List Reviewed: Yes ALPA GAO MD January 17, 2021 08:28
[2021-01-17 08:30] VITALS: BP 114/58
[2021-01-17] MEDS: DOCUSATE SODIUM 100 MG (COLACE) CAP PO SCH ×2 (08:31→20:56)
[2021-01-17 13:00] VITALS: BP 121/58
[2021-01-17] MEDS: FLUoxetine HCL 20 MG (PROzac) CAP PO SCH (13:04)
[2021-01-17 18:15] VITALS: BP 118/57
[2021-01-17 20:50] VITALS: BP 120/62
[2021-01-18 02:40] VITALS: BP 109/62
[2021-01-18] MEDS: IBUPROFEN 800 MG (MOTRIN) TAB PO SCH ×2 (02:50→08:34)
[2021-01-18] MEDS: oxyCODONE/APAP 10/325MG (PERCOCET 10) TABLET PO PRN ×3 (03:09→12:22)
--- NOTE | 2021-01-18 07:53 | Progress Note ---
Standard Progress Note Progress Notes/Assess & Plan Date Seen by a Provider: January 18, 2021 Time Seen by a Provider: 07:52 Progress/Assessment & Plan This patient is without complaint. She is ambulating, voiding, tolerating oral intake well and has good pain control. Patient is requesting discharge home. Vital Signs 01/18/21 02:40 Temp 36.5 Pulse 86 Resp 18 B/P (MAP) 109/62 (78) Pulse Ox 99 O2 Delivery Room Air Vital signs are stable. Patient is afebrile. The abdomen is benign. The surgical incision is clean dry and intact. Extremities show no clubbing cyanosis. There is no Homans' sign. Assessment and plan Hospital day 2 postoperative day #4. Patient was readmitted after discharge home on postoperative day 2 now she is to be discharged home with follow-up in clinic Final Diagnosis Postoperative day #4 status post primary delivery patient was rose dmitted for observation for pain management on postoperative day #2 ALPA GAO MD January 18, 2021 07:53
--- NOTE | 2021-01-18 07:54 | Discharge Inst-Surgical ---
Discharge Inst-Surgical Depart Medication/Instructions New, Converted or Re-Newed RX: Other Consults/Follow Up Patient Instructions: As directed Orders & Referrals Follow Up Appt: RTC This Sunday at 9:30 AM for incision check. Call to make follow up appt. for patient in 4 weeks. Activity Per routine post instructions. Use pain medication as previously prescribed. Diet as tolerated Patient may shower or tub bathe as desired. Continue home meds Activity Activity as Tolerated: No Diet Discharge Diet: No Restrictions ALPA GAO MD January 18, 2021 07:54
[2021-01-18 08:30] VITALS: BP 128/58
[2021-01-18] MEDS: DOCUSATE SODIUM 100 MG (COLACE) CAP PO SCH (08:34)
[2021-01-18] MEDS: FLUoxetine HCL 20 MG (PROzac) CAP PO SCH (12:22)
[2021-01-18 12:55] VITALS: BP 128/58
== END 2021-01-18 07:53 | disposition home or self-care (01) ==
LOC: WSo 20:34 → WS 20:34 → WSo 21:37 → UNDOADMOB 21:38 → WS 21:38 → UNDODISOB 01-18 12:55 → EDSTATUS 01-26 12:30
PROVIDERS: ADMIT Obstetrics & Gynecology; ATTEND Obstetrics & Gynecology
DX: O75.4 Other complications of obstetric surgery and procedures (principal)
CPT/HCPCS: G0378; G0379; 99211

== ENCOUNTER 2021-03-19 21:24 | Emergency (ER) | payer MEDICAID ==
[~2021-03-19] VITALS: Ht 175 cm; Wt 99.8 kg
[2021-03-19] MEDS ORDERED: CITA20TA9 (21:38)
[2021-03-19] MEDS ORDERED: NORG1TAB14 (21:38)
[2021-03-19] MEDS ORDERED: IBUPROFEN 800 MG (MOTRIN) TAB PO ONE ×2 (21:45)
--- NOTE | 2021-03-19 22:01 | ED Cough/URI ---
General Chief Complaint: Cough/Cold/Flu Symptoms Stated Complaint: COUGH,HEADACHE,BODY ACHES,FEVER Nursing Triage Note: COUGH,FEVER,CHILLS, HEADACHE TODAY. Source: patient Exam Limitations: no limitations History of Present Illness Date Seen by Provider: Mar 19, 2021 Time Seen by Provider: 21:31 Initial Comments Patient to the ER by private conveyance from home with chief complaint of waking up this morning with cough, nonproductive, fevers, chills, body aches. She took 1 dose of Tylenol earlier today. She is not had any diarrhea dysuria vomiting or nausea. She does not have any significant medical history other than a couple months ago he had a . She is not presently. Her baby was recently diagnosed with RSV. Allergies and Home Medications Allergies Coded Allergies: No Known Drug Allergies (Unverified , 10/11/19) Home Medications Benzonatate 100 Mg Capsule, 100 MG PO Q6H PRN for COUGH Prescribed by: ALHAJI CUMMINGS on 03/19/212202 Ondansetron 4 Mg Tab.rapdis, 4 MG PO Q6H PRN for NAUSEA/VOMITING Prescribed by: ALHAJI CUMMINGS on 03/19/212202 Patient Home Medication List Home Medication List Reviewed: Yes Review of Systems Review of Systems Constitutional: chills, fever, malaise EENTM: No ear discharge, No ear pain Respiratory: cough, short of breath Cardiovascular: No chest pain, No palpitations Gastrointestinal: No abdominal pain, No nausea, No vomiting Genitourinary: No discharge, No dysuria Musculoskeletal: No back pain, No joint pain All Other Systems Reviewed Negative Unless Noted: Yes Past Utekquu-Sirswp-Ioyiba Hx Patient Social History Tobacco Use?: No Substance use?: No Alcohol Use?: No Pt feels they are or have been: No Immunizations Up To Date Tetanus Booster (TDap): Unknown PED Vaccines UTD: Yes Seasonal Allergies Seasonal Allergies: Yes Past Medical History Surgery/Hospitalization HX: 01/14/21, ASTHMA Surgeries: No Respiratory: Yes Asthma Cardiac: No Neurological: No Last Menstrual Period: Mar 19, 2021 Reproductive Disorders: No Genitourinary: No Gastrointestinal: No Musculoskeletal: No Endocrine: No HEENT: No Cancer: No Psychosocial: Yes Depression Integumentary: No Recent Skin Changes Blood Disorders: No Physical Exam Vital Signs - First Documented 7/17/21 21:30 Temp 38.3 Pulse 117 Resp 18 B/P (MAP) 126/71 (89) Pulse Ox 98 O2 Delivery Room Air Capillary Refill : Less Than 3 Seconds Height: '" Weight: lbs. oz. kg; 32.00 BMI Method: General Appearance: WD/WN, no apparent distress Eyes: Bilateral Eye Normal Inspection, Bilateral Eye PERRL, Bilateral Eye EOMI HEENT: PERRL/EOMI, pharynx normal Neck: full range of motion, normal inspection Respiratory: lungs clear, normal breath sounds, no respiratory distress, no accessory muscle use Cardiovascular: normal peripheral pulses, regular rate, rhythm Gastrointestinal: non tender, soft Extremities: normal range of motion, non-tender, normal capillary refill Neurologic/Psychiatric: alert, normal mood/affect, oriented x 3 Skin: normal color, warm/dry Progress/Results/Core Measures Suspected Sepsis SIRS Temperature: Pulse: 117 Respiratory Rate: 18 Blood Pressure 126 /71 Mean: 89 Results/Orders Lab Results Laboratory Tests Test 03/19/21 21:40 Range/Units Influenza Type A (RT-PCR) Not Detected Not Detecte Influenza Type B (RT-PCR) Not Detected Not Detecte SARS-CoV-2 RNA (RT-PCR) Detected H Not Detecte My Orders Orders - ALHAJI CUMMINGS Ibuprofen Tablet (Motrin Tablet) (03/19/21 21:45) Covid 19 Inhouse Test (03/19/21 21:44) Rsv Antigen (03/19/21 21:44) Influenza A And B By Pcr (03/19/21 21:44) Ibuprofen Tablet (Motrin Tablet) (03/19/21 21:45) Medications Given in ED Current Medications Medications Dose Ordered Sig/Devonte Route Start Time Stop Time Status Last Admin Dose Admin Ibuprofen 800 mg ONCE ONCE PO 03/19/21 21:45 03/19/21 21:46 DC 03/19/21 21:47 800 MG Vital Signs/I&O 03/19/21 03/19/21 03/19/21 21:30 21:30 21:47 Temp 38.3 38.3 Pulse 117 Resp 18 B/P (MAP) 126/71 (89) Pulse Ox 98 O2 Delivery Room Air Room Air Capillary Refill : Less Than 3 Seconds Blood Pressure Mean: 89 Progress Note #1: Time: 21:47 Progress Note Covid RSV and influenza swab. We will give her some Motrin. Consistent with a viral upper respiratory tract infection. Progress Note #2: Time: 22:52 Progress Note There was a delay running the RSV but lab is on it now and says it will be about 15 minutes before they get a result. The patient has experienced no material deterioration during her ER stay and is okay to go home. Return precautions were discussed. Departure Impression Primary Impression: COVID-19 Disposition: 01 HOME, SELF-CARE Condition: Stable Departure-Patient Inst. Decision time for Depature: 22:53 Referrals: ALAP GAO MD (PCP/Family) Primary Care Physician Patient Instructions: COVID-19 (DC) Add. Discharge Instructions: Tylenol 1000 mg every 8 hours as necessary for body aches or fever. Ibuprofen 800 mg every 8 hours as necessary for body aches or fever. Drink lots of fluids. Zofran 1 tablet under the tongue every 6 hours as necessary for nausea and/or vomiting. Tessalon Perles 1 capsule every 6 hours as necessary for cough. Return to the ER if your oxygen saturations are consistently below 90% while at rest. You are to remain on isolation until after the March as long as the last 24 hours you were symptom-free without fever or shortness of air. Wash your hands, wear a mask and reduce contact with your family members in the household. Quarantine with testing for anyone exposed to you. After exposure, monitored daily (self-monitoring or active monitoring by Public Health) for 7 days. Are only eligible for shortened quarantine if you have no symptoms. On or after day 5, may get a PCR test (antigen and antibody tests are NOT allowed for this purpose) if negative can be removed from quarantine after day seven (7). Must remain asymptomatic (no symptoms) Quarantine without testing for anyone exposed to you. After exposure, monitored daily (self-monitoring or active monitoring) daily for 10 days. Are only eligible for shortened quarantine if you have no symptoms. After day 10 can be released from quarantine without a test. Must remain asymptomatic (no symptoms) All exposed people should self-monitor for fourteen (14) days from exposure and contact healthcare provider if symptoms develop. Disease can still develop through day 14. All discharge instructions reviewed with patient and/or family. Voiced understanding. Scripts Benzonatate (Tessalon Perle) 100 Mg Capsule 100 MG PO Q6H PRN for COUGH, #20 CAP 0 Refills Prov: ALHAJI CUMMINGS 03/19/21 Ondansetron (Ondansetron Odt) 4 Mg Tab.rapdis 4 MG PO Q6H PRN for NAUSEA/VOMITING, #8 TAB 0 Refills Prov: ALHAJI CUMMINGS 03/19/21 Work/School Note: Work Release Form Date Seen in the Emergency Department: Mar 19, 2021 Return to Work: Mar 29, 2021 Restrictions: No Restrictions Other Restrictions Listed Below: Must be symptom-free for 24 hours prior to returning to work after the ALHAJI CUMMINGS Mar 19, 2021 22:01
[2021-03-19] MEDS ORDERED: BENZ-13 PO (22:03)
[2021-03-19] MEDS ORDERED: ONDA4TAB11 PO (22:03)
[2021-03-19 22:55] VITALS: BP 106/64
[2021-03-19] MEDS ORDERED: RT-ALBUINH IH (23:17)
== END 2021-03-19 22:57 | disposition home or self-care (01) ==
LOC: EDUNIT# 21:24 → ER 21:27
DX: U07.1 COVID-19 (principal)
CPT/HCPCS: 87420; 87636; 99283

== ENCOUNTER 2021-03-26 21:11 | Emergency (ER) | payer MEDICAID ==
[~2021-03-26] VITALS: Ht 175 cm; Wt 100.0 kg
[~2021-03-26 21:11] MED LIST changes: +BENZ-13 PO; +CITA20TA9; +NORG1TAB14; +ONDA4TAB11 PO; +RT-ALBUINH IH
[2021-03-26 22:20] VITALS: BP 109/67
[2021-03-26] MEDS ORDERED: RX-ONDANSETRON 4 MG ODT (ZOFRAN) PPK #4 PO STA (22:47)
[2021-03-26] MEDS ORDERED: ONDA4TAB11 PO (22:51)
--- NOTE | 2021-03-26 22:51 | ED General ---
General Chief Complaint: Head/Cervical Problems Stated Complaint: COVID POSITIVE / PATE Nursing Triage Note: PT PRESENTS TO ED ROOM TEN C/O A HEADACHE THAT HAS INCREASED IN SEVERITY TODAY. PT STATES SHE WAS DX LAST SUNDAY WITH COVID, STATES MOST OF HER SYMPTOMS RESOLVED, UNTIL THE HEADACHE BEGAN THIS AM. REPORTS INTERMITTENT NV. 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 Source of Information: Patient Allergies and Home Medications Allergies Coded Allergies: No Known Drug Allergies (Unverified , 10/11/19) Home Medications Albuterol Sulfate 1 Puff Puff, 2 PUFF IH Q4H PRN for COUGH 1 PUFF = 90 MCG Prescribed by: ALHAJI CUMMINGS on 03/19/21 2317 Benzonatate 100 Mg Capsule, 100 MG PO Q6H PRN for COUGH Prescribed by: ALHAJI CUMMINGS on 03/19/212202 Ondansetron 4 Mg Tab.rapdis, 4 MG PO Q6H PRN for NAUSEA/VOMITING Prescribed by: ALHAJI CUMMINGS on 03/19/212202 Past Noaxbmc-Cqwxfb-Evazjv Hx Patient Social History Tobacco Use?: No Substance use?: No Alcohol Use?: No Immunizations Up To Date Tetanus Booster (TDap): Unknown PED Vaccines UTD: Yes Influenza Vaccine Up-to-Date: No; Not Current Seasonal Allergies Seasonal Allergies: Yes Past Medical History Surgery/Hospitalization HX: 01/14/21, ASTHMA Surgeries: No Respiratory: Yes Asthma Cardiac: No Neurological: No Last Menstrual Period: Mar 26, 2021 Reproductive Disorders: No Genitourinary: No Gastrointestinal: No Musculoskeletal: No Endocrine: No HEENT: No Cancer: No Psychosocial: Yes Depression Integumentary: No Recent Skin Changes Blood Disorders: No Physical Exam Vital Signs Vital Signs - First Documented 03/26/21 22:20 Temp 36.2 Pulse 64 Resp 16 B/P (MAP) 109/67 (81) Pulse Ox 97 O2 Delivery Room Air Capillary Refill : Less Than 3 Seconds Height, Weight, BMI Height: '" Weight: lbs. oz. kg; 32.00 BMI Method: Progress/Results/Core Measures Suspected Sepsis SIRS Temperature: Pulse: 64 Respiratory Rate: 16 Blood Pressure 109 /67 Mean: 81 Results/Orders My Orders Orders - SIDNEY ZUNIGA DO Rx-Ondansetron Po (Rx-Zofran Po) (7/24/21 22:47) Vital Signs/I&O 03/26/21 22:20 Temp 36.2 Pulse 64 Resp 16 B/P (MAP) 109/67 (81) Pulse Ox 97 O2 Delivery Room Air Capillary Refill : Less Than 3 Seconds Blood Pressure Mean: 81 Departure Impression Primary Impression: COVID-19 virus infection Disposition: HOME, SELF-CARE Condition: Stable Departure-Patient Inst. Referrals: ALPA GAO MD (PCP/Family) Primary Care Physician [facility] Patient Instructions: COVID-19 ED, Preventing the Spread of an Infectious Disease, Recovery After COVID-19 Add. Discharge Instructions: INCREASE YOUR FLUID INTAKE--WATER, BROTH, JELLO, GATORADE--DRINK ENOUGH SO YOU ARE URINATING EVERY 2 HOURS WHILE AWAKE TYLENOL 1 GRAM AND MOTRIN 800 MG 4 TIMES A DAY NEEDED FOR PAIN OR FEVER CONTINUE TO QUARANTINE FOR ANOTHER 7 DAYS FOLLOW UP WITH [facility] IN 3-4 DAYS IF NO BETTER, OR SOONER IF WORSE All discharge instructions reviewed with patient and/or family. Voiced understanding. Scripts Ondansetron (Ondansetron Odt) 4 Mg Tab.rapdis 4 MG PO Q4H for Nausea/Vomiting, #10 TAB Prov: SIDNEY ZUNIGA DO 03/26/21 SIDNEY ZUNIGA DO Mar 26, 2021 22:51
== END 2021-03-26 22:55 | disposition home or self-care (01) ==
LOC: EDUNIT# 21:11 → ER 21:12
DX: U07.1 COVID-19 (principal); J45.909 Unspecified asthma, uncomplicated
CPT/HCPCS: 99283

== ENCOUNTER 2021-04-13 19:33 | Emergency (ER) | payer MEDICAID ==
[~2021-04-13] VITALS: Ht 175 cm; Wt 100.0 kg
[2021-04-13] MEDS ORDERED: ALPRAZolam 0.25 MG (XANAX) TAB PO ONE (20:30)
--- NOTE | 2021-04-13 20:44 | ED General ---
General Chief Complaint: General Problems/Pain Stated Complaint: BODY TINGLING, LIPS NUMB, HANDS NUMB Nursing Triage Note: pt presents to the ed c/o 45 days of intermittent lip numbness and tachypnea and bilateral hand weakness that onsets at rest or while active, pt thought she was experiencing anxiety initially. states she recently delivered a child via , first child Source of Information: Patient Exam Limitations: No Limitations History of Present Illness Date Seen by Provider: Apr 13, 2021 Time Seen by Provider: 20:43 Initial Comments To ER with a 1.5-month history of numbness throughout her entire body, shortness of breath, tingling in her hands. She initially thought it was anxiety so she ignored it. She has not yet sought care for this. Timing/Duration: 1-2 Days Severity: Moderate Associated Systoms: Denies Symptoms Allergies and Home Medications Allergies Coded Allergies: No Known Drug Allergies (Unverified , 10/11/19) Home Medications Albuterol Sulfate 1 Puff Puff, 2 PUFF IH Q4H PRN for COUGH 1 PUFF = 90 MCG Prescribed by: ALHAJI CUMMINGS on 03/19/21 2317 Benzonatate 100 Mg Capsule, 100 MG PO Q6H PRN for COUGH Prescribed by: ALHAJI CUMMINGS on 03/19/212202 Ondansetron 4 Mg Tab.rapdis, 4 MG PO Q6H PRN for NAUSEA/VOMITING Prescribed by: ALHAJI CUMMINGS on 03/19/212202 Ondansetron 4 Mg Tab.rapdis, 4 MG PO Q4H Prescribed by: SIDNEY ZUNIGA on 03/26/21 2251 Patient Home Medication List Home Medication List Reviewed: Yes Review of Systems Review of Systems Constitutional: see HPI; No chills, No fever EENTM: see HPI Respiratory: no symptoms reported Cardiovascular: no symptoms reported Genitourinary: no symptoms reported Musculoskeletal: no symptoms reported Skin: no symptoms reported Psychiatric/Neurological: No Symptoms Reported Hematologic/Lymphatic: No Symptoms Reported Past Xdifyvd-Cycquy-Xzgzyk Hx Patient Social History Tobacco Use?: No Substance use?: No Alcohol Use?: No Immunizations Up To Date Tetanus Booster (TDap): Unknown PED Vaccines UTD: Yes Seasonal Allergies Seasonal Allergies: Yes Past Medical History Surgery/Hospitalization HX: 01/14/21, ASTHMA Surgeries: No Respiratory: Yes Asthma Cardiac: No Neurological: No Reproductive Disorders: No Genitourinary: No Gastrointestinal: No Musculoskeletal: No Endocrine: No HEENT: No Cancer: No Psychosocial: Yes Depression Integumentary: No Recent Skin Changes Blood Disorders: No Physical Exam Vital Signs Vital Signs - First Documented 04/13/21 19:49 Temp 36.9 Pulse 106 Resp 20 B/P (MAP) 123/78 (93) Pulse Ox 99 O2 Delivery Room Air Capillary Refill : Less Than 3 Seconds Height, Weight, BMI Height: '" Weight: lbs. oz. kg; 32.00 BMI Method: General Appearance: No Apparent Distress, WD/WN Eyes: Bilateral Eye Normal Inspection, Bilateral Eye PERRL, Bilateral Eye EOMI HEENT: PERRL/EOMI, TMs Normal Neck: Full Range of Motion, Normal Inspection Respiratory: No Accessory Muscle Use, No Respiratory Distress Cardiovascular: Regular Rate, Rhythm, Normal Peripheral Pulses Gastrointestinal: Normal Bowel Sounds, Non Tender, Soft Extremity: Normal Capillary Refill, Normal Inspection Neurologic/Psychiatric: Alert, Oriented x3 Skin: Normal Color, Warm/Dry Progress/Results/Core Measures Suspected Sepsis SIRS Temperature: Pulse: 106 Respiratory Rate: 20 Laboratory Tests 04/13/21 21:09: White Blood Count 9.0 Blood Pressure 123 /78 Mean: 93 Laboratory Tests 04/13/21 21:09: Creatinine 0.86, Platelet Count 262, Total Bilirubin 0.2 Results/Orders Lab Results Laboratory Tests Test 04/13/21 21:09 Range/Units White Blood Count 9.0 4.3-11.0 10^3/uL Red Blood Count 4.76 3.80-5.11 10^6/uL Hemoglobin 11.8 11.5-16.0 g/dL Hematocrit 38 35-52 % Mean Corpuscular Volume 80 80-99 fL Mean Corpuscular Hemoglobin 25 25-34 pg Mean Corpuscular Hemoglobin Concent 31 L 32-36 g/dL Red Cell Distribution Width 16.7 H 10.0-14.5 % Platelet Count 262 130-400 10^3/uL Mean Platelet Volume 12.1 9.0-12.2 fL Immature Granulocyte % (Auto) 0 % Neutrophils (%) (Auto) 70 42-75 % Lymphocytes (%) (Auto) 23 12-44 % Monocytes (%) (Auto) 5 0-12 % Eosinophils (%) (Auto) 2 0-10 % Basophils (%) (Auto) 0 0-10 % Neutrophils # (Auto) 6.3 1.8-7.8 10^3/uL Lymphocytes # (Auto) 2.1 1.0-4.0 10^3/uL Monocytes # (Auto) 0.5 0.0-1.0 10^3/uL Eosinophils # (Auto) 0.2 0.0-0.3 10^3/uL Basophils # (Auto) 0.0 0.0-0.1 10^3/uL Immature Granulocyte # (Auto) 0.0 0.0-0.1 10^3/uL D-Dimer 1.09 H 0.00-0.49 UG/ML Urine Color YELLOW Urine Clarity CLOUDY Urine pH 5.0 5-9 Urine Specific Mcclelland >=1.030 1.016-1.022 Urine Protein NEGATIVE NEGATIVE Urine Glucose (UA) NEGATIVE NEGATIVE Urine Ketones NEGATIVE NEGATIVE Urine Nitrite NEGATIVE NEGATIVE Urine Bilirubin NEGATIVE NEGATIVE Urine Urobilinogen 0.2 < = 1.0 MG/DL Urine Leukocyte Esterase NEGATIVE NEGATIVE Urine RBC (Auto) NEGATIVE NEGATIVE Urine RBC NONE /HPF Urine WBC 5-10 H /HPF Urine Squamous Epithelial Cells 25-50 H /HPF Urine Renal Epithelial Cells NONE /HPF Urine Crystals NONE /LPF Urine Bacteria MODERATE H /HPF Urine Casts NONE /LPF Urine Mucus NEGATIVE /LPF Urine Culture Indicated YES Sodium Level 140 135-145 MMOL/L Potassium Level 4.1 3.6-5.0 MMOL/L Chloride Level 109 H 98-107 MMOL/L Carbon Dioxide Level 21 21-32 MMOL/L Anion Gap 10 5-14 MMOL/L Blood Urea Nitrogen 14 7-18 MG/DL Creatinine 0.86 0.60-1.30 MG/DL Estimat Glomerular Filtration Rate 84 BUN/Creatinine Ratio 16 Glucose Level 104 70-105 MG/DL Calcium Level 9.3 8.5-10.1 MG/DL Corrected Calcium 9.5 8.5-10.1 MG/DL Total Bilirubin 0.2 0.1-1.0 MG/DL Aspartate Amino Transf (AST/SGOT) 22 5-34 U/L Alanine Aminotransferase (ALT/SGPT) 23 0-55 U/L Alkaline Phosphatase 66 40-136 U/L Total Protein 8.2 6.4-8.2 GM/DL Albumin 3.8 3.2-4.5 GM/DL Urine Opiates Screen NEGATIVE NEGATIVE Urine Oxycodone Screen NEGATIVE NEGATIVE Urine Methadone Screen NEGATIVE NEGATIVE Urine Propoxyphene Screen NEGATIVE NEGATIVE Urine Barbiturates Screen NEGATIVE NEGATIVE Ur Tricyclic Antidepressants Screen NEGATIVE NEGATIVE Urine Phencyclidine Screen NEGATIVE NEGATIVE Urine Amphetamines Screen NEGATIVE NEGATIVE Urine Methamphetamines Screen NEGATIVE NEGATIVE Urine Benzodiazepines Screen NEGATIVE NEGATIVE Urine Cocaine Screen NEGATIVE NEGATIVE Urine Cannabinoids Screen NEGATIVE NEGATIVE My Orders Orders - ALEXIS GRAMAJO APRN Cbc With Automated Diff (04/13/21 20:14) Comprehensive Metabolic Panel (04/13/21 20:14) Ua Culture If Indicated (04/13/21 20:14) Drug Screen Stat (Urine) (04/13/21 20:14) Ed Iv/Invasive Line Start (04/13/21 20:14) Alprazolam Tablet (Xanax Tablet) (04/13/21 20:30) Fibrin Degradation Products (04/13/21 20:46) Urine Culture (04/13/21 21:09) Ct Angio Chest W (04/13/21 21:34) Rx-Lorazepam (Rx-Ativan) (04/13/21 21:38) Iohexol Injection (Omnipaque 350 Mg/Ml 1 (04/13/21 21:45) Received Contrast (Hold Metformin- Contr (04/13/21 21:45) Ns (Ivpb) (Sodium Chloride 0.9% Ivpb Bag (04/13/21 21:45) Medications Given in ED Current Medications Medications Dose Ordered Sig/Devonte Route Start Time Stop Time Status Last Admin Dose Admin Alprazolam 0.25 mg ONCE ONCE PO 04/13/21 20:30 04/13/21 20:31 DC 04/13/21 20:49 0.25 MG Vital Signs/I&O 04/13/21 19:49 Temp 36.9 Pulse 106 Resp 20 B/P (MAP) 123/78 (93) Pulse Ox 99 O2 Delivery Room Air Capillary Refill : Less Than 3 Seconds Blood Pressure Mean: 93 Departure Communication (Admissions) The CT lung findings are likely secondary to the Covid she had 20 days ago NAME: MARIA E WISE Philippe [facility] REC#: [id number] PT STATUS: REG ER : 2000 PHYSICIAN: ALEXIS GRAMAJO APRN ADMIT DATE: 04/13/21/ER Draft Date of Exam:04/13/21 CT ANGIO CHEST W INDICATION: Shortness of breath and tachycardia. TECHNIQUE: Multiple contiguous axial images were obtained through the chest after uneventful bolus administration of intravenous contrast. 3D reconstructed CTA MIP acquisitions were also performed. Auto Exposure Controls were utilized during the CT exam to meet ALARA standards for radiation dose reduction. COMPARISON: There is no prior study for comparison. FINDINGS: The pulmonary parenchymal vessels are well-opacified with no CT evidence of pulmonary emboli. There is no evidence of aortic aneurysm or dissection. There is no adenopathy in the mediastinum or dyllan. Axillary regions and chest wall appear unremarkable. There is no pleural or pericardial fluid. Visualized portions of the upper abdomen appear unremarkable. Lung parenchymal windows demonstrate a few scattered mild groundglass opacities, early pneumonia not excluded. IMPRESSION: 1. No CT evidence of pulmonary embolus, aortic dissection or aneurysm. There is no pleural fluid or focal mass lesion. 2. Lung parenchymal windows demonstrate some very minimal scattered patchy groundglass opacities, very early pneumonia cannot be excluded. Dictated on workstation # [id number] Dict: 04/13/212199 Trans: 04/13/212207 [facility] [id number] Interpreted by: KENDELL HAAS MD Electronically signed by: Impression Primary Impression: Shortness of breath Additional Impressions: Anxiety Paresthesia Disposition: 01 HOME, SELF-CARE Condition: Stable Departure-Patient Inst. Decision time for Depature: 21:39 Referrals: AUSTIN RICHARDSON BETHANY N MD GAULT, HOLLY R MD HIGGINBOTHAM, DENNIS G MD (PCP/Family) Primary Care Physician ALEXANDRE LUDWIG JACQUELINE S DO STEWART, CHAD C MD Patient Instructions: Anxiety, Adult ED Add. Discharge Instructions: 1. it is important to call a primary care provider of your choosing to help follow up on this issue. Call a provider of your choosing tomorrow to get your name in the books as it will take a few weeks to get in. All discharge instructions reviewed with patient and/or family. Voiced understanding. ALEXIS GRAMAJO APRN Apr 13, 2021 20:44
[2021-04-13 21:15] LABS: BASOPHILS % (AUTO) 0 % (0-10); EOSINOPHILS # (AUTO) 0.2 10^3/uL (0.0-0.3); EOSINOPHILS % (AUTO) 2 % (0-10); HEMATOCRIT 38 % (35-52); HEMOGLOBIN 11.8 g/dL (11.5-16.0); LYMPHOCYTES # (AUTO) 2.1 10^3/uL (1.0-4.0); LYMPHOCYTES % (AUTO) 23 % (12-44); MEAN CORPUSCULAR HEMOGLOBIN 25 pg (25-34); MEAN CORPUSCULAR HGB CONC 31 g/dL (32-36); MEAN CORPUSCULAR VOLUME 80 fL (80-99); MEAN PLATELET VOLUME 12.1 fL (9.0-12.2); MONOCYTES # (AUTO) 0.5 10^3/uL (0.0-1.0); MONOCYTES % (AUTO) 5 % (0-12); NEUTROPHILS # (AUTO) 6.3 10^3/uL (1.8-7.8); NEUTROPHILS % (AUTO) 70 % (42-75); PLATELET COUNT 262 10^3/uL (130-400)
[2021-04-13 21:21] LABS: BILIRUBIN,URINE NEGATIVE (NEGATIVE); CLARITY,URINE CLOUDY; COLOR,URINE YELLOW; GLUCOSE, URINE (UA) NEGATIVE (NEGATIVE); KETONES,URINE NEGATIVE (NEGATIVE); LEUKOCYTE ESTERASE ,URINE NEGATIVE (NEGATIVE); NITRITE,URINE NEGATIVE (NEGATIVE); PROTEIN,URINE NEGATIVE (NEGATIVE)
[2021-04-13 21:32] LABS: BACTERIA,URINE MODERATE /HPF; SQUAMOUS EPITHELIAL CELL,UR 25-50 /HPF
[2021-04-13 21:33] LABS: AMPHETAMINE SCREEN, URINE NEGATIVE (NEGATIVE); BARBITURATE SCREEN URINE NEGATIVE (NEGATIVE); BENZODIAZEPINES SCREEN URINE NEGATIVE (NEGATIVE); CANNABINOID SCREEN, URINE NEGATIVE (NEGATIVE); COCAINE SCREEN URINE NEGATIVE (NEGATIVE); METHADONE STAT NEGATIVE (NEGATIVE); METHAMPHETAMINE SCREEN URINE S NEGATIVE (NEGATIVE); OPIATE SCREEN URINE NEGATIVE (NEGATIVE); OXYCODONE STAT NEGATIVE (NEGATIVE); PROPOXYPHENE STAT NEGATIVE (NEGATIVE); TRICYCLIC ANTIDEPRESSANTS SCRE NEGATIVE (NEGATIVE)
[2021-04-13 21:34] LABS: ALBUMIN 3.8 GM/DL (3.2-4.5); BILIRUBIN,TOTAL 0.2 MG/DL (0.1-1.0); CALCIUM 9.3 MG/DL (8.5-10.1); CREATININE SERUM 0.86 MG/DL (0.60-1.30); POTASSIUM 4.1 MMOL/L (3.6-5.0); TOTAL PROTEIN 8.2 GM/DL (6.4-8.2)
[2021-04-13] MEDS ORDERED: RX-LORAZEPAM (ATIVAN) 0.5 MG TAB PPK#4 PO STA (21:38)
[2021-04-13] MEDS ORDERED: IOHEXOL 350 MG/ML 100 ML (OMNIPAQUE 350) VIAL IV ONE (21:45)
[2021-04-13] MEDS ORDERED: NS 100 ML (IVPB) BAG IV ONE (21:45)
[2021-04-13] MEDS ORDERED: HOLD METFORMIN - RECEIVED CONTRAST 20 ML VIAL IV SCH (21:45)
--- NOTE | 2021-04-13 22:09 | Diagnostic Imaging Report ---
INDICATION: Shortness of breath and tachycardia. TECHNIQUE: Multiple contiguous axial images were obtained through the chest after uneventful bolus administration of intravenous contrast. 3D reconstructed CTA MIP acquisitions were also performed. Auto Exposure Controls were utilized during the CT exam to meet ALARA standards for radiation dose reduction. COMPARISON: There is no prior study for comparison. FINDINGS: The pulmonary parenchymal vessels are well-opacified with no CT evidence of pulmonary emboli. There is no evidence of aortic aneurysm or dissection. There is no adenopathy in the mediastinum or dyllan. Axillary regions and chest wall appear unremarkable. There is no pleural or pericardial fluid. Visualized portions of the upper abdomen appear unremarkable. Lung parenchymal windows demonstrate a few scattered mild groundglass opacities, early pneumonia not excluded. IMPRESSION: 1. No CT evidence of pulmonary embolus, aortic dissection or aneurysm. There is no pleural fluid or focal mass lesion. 2. Lung parenchymal windows demonstrate some very minimal scattered patchy groundglass opacities, very early pneumonia cannot be excluded. Dictated by: Dictated on workstation # [id number]
[2021-04-13 22:46] VITALS: BP 123/78
--- OUTSIDE RECORDS SUMMARY | 2021-04-14 12:48 | XMS REPORT ---
Author Author Brandi Echavarria Organization [facility] Address [address] [place], [place] [id number] Care Team Providers Care Health Data Analyst Name Role Phone Gilmer Echavarriamy [place] PCP SONNY SAVAGE PreferredProvider Allergies and Adverse [...] HC BMI BSA BMI Percentile O2 Sat(%) 06/28/2020 3:07:00 PM 90 {beats}/min 18 rpm 99.5 F 98 % 09/10/2019 2:01:00 PM 128 mm[Hg] 78 mm[Hg] 94 {beats}/min 18 rpm 98.4 F 164.062 lbs 69 in 24.23 kg/m2 1.90 m2 75 % 99 % 02/24/2019 2:56:00 [...] rpm 98 F 144 lbs 69 in 21.26 kg/m2 1.78 m2 54 % 99 % Social History Name Description Comments Single Tobacco Never smoker Alcohol Never Uses seatbelts History of Procedures Date Ordered Description Order Status 07/11/2018 12:00 AM THERAPEUTIC PROPHYLACTIC/DX INJECTION CHEEK BQ/IM Reviewed 07/11/2018 12:00 AM Decadron 8mg Injection, [facility] Medicaid Rev iewed 07/11/2018 12:00 AM Depo-Medrol 80 Mg Injection, [facility] Medicai d Reviewed 07/16/2018 12:00 AM X-RAY EXAM NECK SPINE 2-3 VW Returned 09/18/2018 12:00 AM X-RAY EXAM L-2 SPINE 4/>VWS Returned 12/13/2018 12:00 AM Splint, prefabricated, wrist or ankle Re viewed 06/28/2020 12:00 AM COVID-19 Testing Returned Results Summary Not available. History Of Immunizations [...] injectable contr aceptive Sep 10 2019 2:02PM Sore throat Jun 28 2020 11:52AM Close exposure to severe acute respiratory syndrome co ronavirus 2 (SARS-CoV-2) Mar 03 2021 8:45AM Sore throat Mar 03 2021 8:45AM Payers Insurance Name Company Name Plan Name Plan Number Policy Number [place] Group Number Start Date [facility] [id number] N/A [facility] [id number] N/A [employer] fuentes Timothy [employer] PERCENT October [employer] [facility] [employer] - COVID 19 Test COVI D 19 N/A History of Encounters Visit Date Visit Type Provider 03/03/2021 Nurse visit Kristen Echavarria APR N 06/28/2020 Office visit Margie CUMMINGS RN 09/09/2019 Office visit SONNY SAVAGE PA 02/24/2019 Office visit SONNY GRAHAM 12/13/2018 Office visit SONNY GRAHAM 09/18/2018 Office visit Iggy Fox 08/06/2018 Office visit SONNY GRAHAM 07/11/2018 Office visit SONNY GRAHAM 04/15/2018 Office visit SONNY GRAHAM 08/02/2017 Office visit SONNY GRAHAM
--- OUTSIDE RECORDS SUMMARY | 2021-04-14 12:48 | XMS REPORT ---
Author Author Brandi Robles Organization [facility] Address [address] [place], [place] [id number] Care Team Providers Care Metal Furniture Repairer Name Role Phone Margie Robles PCP SONNY SAVAGE PreferredProvider Allergies and Adverse [...] Reviewed 07/11/2018 12:00 AM Decadron 8mg Injection, [facility] Medicaid Rev iewed 07/11/2018 12:00 AM Depo-Medrol 80 Mg Injection, [facility] Medicai d Reviewed 07/16/2018 12:00 AM X-RAY [...] Number [employer] Group Number Start Date [facility] [id number] N/A [facility] [id number] N/A [employer] Timothy 50 PERCENT October Going - COVID 19 Test COVI D 19 N/A History of Encounters Visit Date Visit Type Provider 06/28/2020 Office visit Margie CUMMINGS RN 09/09/2019 Office visit SONNY GRAHAM 02/24/2019 Office visit SONNY SAVAGE PA 12/13/2018 Office visit SONNY GRAHAM 09/18/2018 Office visit Iggy Fox DO 08/06/2018 Office visit SONNY SAVAGE PA 07/11/2018 Office visit SONNY GRAHAM 04/15/2018 Office visit SONNY GRAHAM 08/02/2017 Office visit SONNY SAVAGE PA
--- OUTSIDE RECORDS SUMMARY | 2021-04-14 12:48 | XMS REPORT | Clinical Summary ---
Author Author [facility] Organization [facility] Address Unknown Phone Unavailable Care Team Providers Care Banking Services Officer Name Role Phone Xu Huerta MD PCP Source Comments Some departments are not documenting in the electronic medical record. If you d o not see the information that you expected, contact Release of Information in [facility] Health Information Management department at [phone] for further assistan ce in locating additional records.[facility] Allergies Not on File Medications Not on file Active Problems Not on file Social History Date Tobacco Use Types Packs/Day Years Used Never Assessed Sex Assigned at Date Recorded Not on file Last Filed Vital Signs Not on file Plan of Treatment Health Maintenance Due Date Last Done Comments CHLAMYDIA SCREENING 18-24 2000 YEARS HPV VACCINES (1 - 2-dose 2011 series) HIV SCREENING 2015 DTAP/TDAP VACCINES (1 - 2018 Tdap) HEPATITIS C SCREENING 2018 PHYSICAL (COMPREHENSIVE) 2018 EXAM INFLUENZA VACCINE 06/03/2021 MENINGOCOCCAL VACCINE Aged Out No longer ruchi nolen based on patient's age to ([place]) complete this topic Results Not on filefrom Last 3 Months
== END 2021-04-13 22:49 | disposition home or self-care (01) ==
LOC: EDUNIT# 19:33 → ER 19:35
DX: F41.9 Anxiety disorder, unspecified (principal); R20.2 Paresthesia of skin; J45.909 Unspecified asthma, uncomplicated; Z79.899 Other long term (current) drug therapy
CPT/HCPCS: 36415; 71275; 80053; 80306; 81000; 85025; 85379; 87088

== ENCOUNTER 2021-04-24 12:18 | Emergency (ER) | payer MEDICAID ==
[~2021-04-24] VITALS: Ht 175.2 cm; Wt 100.0 kg
[2021-04-24] MEDS ORDERED: LACTATED RINGERS 1,000 ML IV STA (12:22)
--- NOTE | 2021-04-24 12:39 | ED Syncope ---
General Stated Complaint: DIZZINESS Source of Information: Patient Exam Limitations: No Limitations History of Present Illness Date Seen by Provider: Apr 24, 2021 Time Seen by Provider: 12:22 Initial Comments Here with report of syncopal episode. Apparently she was at mu-ism. She was holding her 3-month-old baby. Her and child just got baptized. She reports that for some reason she started feeling very weak and tried to hang the baby off and then fell back against the wall and to the floor. She does not remember the end. Complains of pain to the back of her head on the right side. Denies nausea or vomiting. She reports that she has had dizziness for months. She did have depression and was on Celexa for a while but has been off that for a month or 2. Denies recent illness. She has previously had Covid but has not had vaccination. Delivery via Timing/Prior Episodes: Single Episode Today Symptoms Prior to Episode: None Precipitating Factors: Standing Loss of Consciousness: Brief (Seconds) Current Symptoms: Headache, Lightheadedness Allergies and Home Medications Allergies Coded Allergies: No Known Drug Allergies (Unverified , 10/11/19) Home Medications Albuterol Sulfate 1 Puff Puff, 2 PUFF IH Q4H PRN for COUGH 1 PUFF = 90 MCG Prescribed by: ALHAJI CUMMINGS on 03/19/21 2317 Benzonatate 100 Mg Capsule, 100 MG PO Q6H PRN for COUGH Prescribed by: ALHAJI CUMMINGS on 03/19/212202 Ondansetron 4 Mg Tab.rapdis, 4 MG PO Q6H PRN for NAUSEA/VOMITING Prescribed by: ALHAJI CUMMINGS on 03/19/212202 Ondansetron 4 Mg Tab.rapdis, 4 MG PO Q4H Prescribed by: SIDNEY ZUNIGA on 03/26/21 2251 Patient Home Medication List Home Medication List Reviewed: Yes Review of Systems Constitutional: see HPI; No chills, No fever EENTM: No nose congestion, No throat pain Respiratory: No cough, No short of breath Cardiovascular: No chest pain; syncope Gastrointestinal: No nausea, No vomiting Genitourinary: no symptoms reported LMP: Apr 24, 2021 Musculoskeletal: No back pain, No neck pain Skin: no symptoms reported Psychiatric/Neurological: Depressed, Headache All Other Systems Reviewed Negative Unless Noted: Yes Past Hhuhjjm-Ljgtyk-Gvhbjp Hx Patient Social History Tobacco Use?: No Substance use?: No Alcohol Use?: No Immunizations Up To Date Tetanus Booster (TDap): Unknown PED Vaccines UTD: Yes Seasonal Allergies Seasonal Allergies: Yes Past Medical History Surgery/Hospitalization HX: 01/14/21, ASTHMA Surgeries: Yes Section Respiratory: Yes Asthma Cardiac: No Neurological: No Reproductive Disorders: No Genitourinary: No Gastrointestinal: No Musculoskeletal: No Endocrine: No HEENT: No Cancer: No Psychosocial: Yes Depression Integumentary: No Recent Skin Changes Blood Disorders: No Family Medical History Reviewed and Corrections made Cancer Physical Exam Vital Signs Vital Signs - First Documented 04/24/21 12:22 Temp 36.1 Pulse 107 Resp 22 B/P (MAP) 125/81 (96) Pulse Ox 96 O2 Delivery Room Air Capillary Refill : Height, Weight, BMI Height: '" Weight: lbs. oz. kg; 32.00 BMI Method: General Appearance: No Apparent Distress, WD/WN Neck: Full Range of Motion, Non Tender, Supple Cardiovascular: No Murmur, Tachycardia Respiratory: Lungs Clear, Normal Breath Sounds Gastrointestinal: Non Tender, Soft Back: Normal Inspection, No CVA Tenderness, No Vertebral Tenderness Extremities: Normal Range of Motion, Non Tender Neurologic/Psychiatric: Alert, Oriented x3 Cranial Nerves: Normal Hearing, Normal Speech, PERRL Motor/Sensory: No Motor Deficit, No Sensory Deficit Skin: Normal Color, Warm/Dry Progress/Results/Core Measures Results/Orders Lab Results Laboratory Tests Test 04/24/21 12:35 04/24/21 12:48 04/24/21 12:49 Range/Units White Blood Count 9.5 4.3-11.0 10^3/uL Red Blood Count 4.90 3.80-5.11 10^6/uL Hemoglobin 12.1 11.5-16.0 g/dL Hematocrit 40 35-52 % Mean Corpuscular Volume 81 80-99 fL Mean Corpuscular Hemoglobin 25 25-34 pg Mean Corpuscular Hemoglobin Concent 30 L 32-36 g/dL Red Cell Distribution Width 16.0 H 10.0-14.5 % Platelet Count 311 130-400 10^3/uL Mean Platelet Volume 11.1 9.0-12.2 fL Immature Granulocyte % (Auto) 0 % Neutrophils (%) (Auto) 71 42-75 % Lymphocytes (%) (Auto) 21 12-44 % Monocytes (%) (Auto) 6 0-12 % Eosinophils (%) (Auto) 2 0-10 % Basophils (%) (Auto) 0 0-10 % Neutrophils # (Auto) 6.7 1.8-7.8 10^3/uL Lymphocytes # (Auto) 2.0 1.0-4.0 10^3/uL Monocytes # (Auto) 0.6 0.0-1.0 10^3/uL Eosinophils # (Auto) 0.2 0.0-0.3 10^3/uL Basophils # (Auto) 0.0 0.0-0.1 10^3/uL Immature Granulocyte # (Auto) 0.0 0.0-0.1 10^3/uL Erythrocyte Sedimentation Rate 32 H 0-20 MM/HR Sodium Level 137 135-145 MMOL/L Potassium Level 3.9 3.6-5.0 MMOL/L Chloride Level 108 H 98-107 MMOL/L Carbon Dioxide Level 20 L 21-32 MMOL/L Anion Gap 9 5-14 MMOL/L Blood Urea Nitrogen 18 7-18 MG/DL Creatinine 0.75 0.60-1.30 MG/DL Estimat Glomerular Filtration Rate 99 BUN/Creatinine Ratio 24 Glucose Level 98 70-105 MG/DL Calcium Level 9.2 8.5-10.1 MG/DL Corrected Calcium 9.4 8.5-10.1 MG/DL Total Bilirubin 0.3 0.1-1.0 MG/DL Aspartate Amino Transf (AST/SGOT) 24 5-34 U/L Alanine Aminotransferase (ALT/SGPT) 31 0-55 U/L Alkaline Phosphatase 67 40-136 U/L Total Protein 7.6 6.4-8.2 GM/DL Albumin 3.8 3.2-4.5 GM/DL D-Dimer 0.58 H 0.00-0.49 UG/ML Urine Color YELLOW Urine Clarity SL CLOUDY Urine pH 6.0 5-9 Urine Specific [place] 1.025 H 1.016-1.022 Urine Protein NEGATIVE NEGATIVE Urine Glucose (UA) NEGATIVE NEGATIVE Urine Ketones TRACE H NEGATIVE Urine Nitrite NEGATIVE NEGATIVE Urine Bilirubin NEGATIVE NEGATIVE Urine Urobilinogen 0.2 < = 1.0 MG/DL Urine Leukocyte Esterase NEGATIVE NEGATIVE Urine RBC (Auto) 3+ H NEGATIVE Urine RBC 10-25 H /HPF Urine WBC 0-2 /HPF Urine Crystals PRESENT H /LPF Urine Amorphous Sediment FEW KHURRAM URATES H /LPF Urine Bacteria TRACE /HPF Urine Casts NONE /LPF Urine Mucus MODERATE H /LPF Urine Culture Indicated NO My Orders Orders - TOBY HUERTA MD Ct Head Wo (04/24/21 12:22) Ed Iv/Invasive Line Start (04/24/21 12:22) Cbc With Automated Diff (04/24/21 12:22) Comprehensive Metabolic Panel (04/24/21 12:22) Ua Culture If Indicated (04/24/21 12:22) Lactated Ringers (Lr 1000 Ml Iv Solution (04/24/21 12:22) Urine Bedside (04/24/21 12:32) Ekg Tracing (04/24/21 12:32) Erythrocyte Sedimentation Rate (04/24/21 12:40) Fibrin Degradation Products (04/24/21 13:21) Vital Signs/I&O 04/24/21 12:22 Temp 36.1 Pulse 107 Resp 22 B/P (MAP) 125/81 (96) Pulse Ox 96 O2 Delivery Room Air Progress Progress Note : Progress Note Seen and evaluated. CT head ordered. IV, labs, UA and UCG ordered. LR 1 L bolus. Monitor patient. 1351: No abnormalities currently. CT negative. Fluid nearly complete. We were working at discharge and patient states that she has a headache and is still dizzy so she is concerned about that. Meclizine 25 mg p.o. and Tylenol 1 g p.o. ordered. This dizziness apparently has been going on for a couple months now. I did talk with her about outpatient follow-up and she has not followed up with Dr. Chauhan. I did discuss following up with primary care as well and we will give her some information for that. She definitely needs outpatient follow-up and this was discussed at length. Monitor patient. Initial ECG Impression Date: Apr 24, 2021 Initial ECG Impression Time: 12:44 Initial ECG Rate: 85 Initial ECG Rhythm: Normal Sinus Initial ECG Impression: Normal Initial ECG Comparisson: Unchanged Comment Sinus rhythm with normal axis. No evidence of ST elevation VT. Similar to previous of 02/11/2020 although small changes in lead III with low volume QRS and slightly negative appearing T waves. Interpreted by me. Diagnostic Imaging Diagonstic Imaging: CT Plain Films/CT/US/NM/MRI: head Comments [facility], [place] NAME: MARIA E [facility] REC#: [id number] PT STATUS: REG ER : 2000 PHYSICIAN: TOBY HUERTA MD ADMIT DATE: 04/24/21/ER Draft Date of Exam:04/24/21 CT HEAD WO PROCEDURE: CT head without contrast. TECHNIQUE: Multiple contiguous axial images were obtained through the brain without the use of intravenous contrast. Auto Exposure Controls were utilized during the CT exam to meet ALARA standards for radiation dose reduction. INDICATION: Fall. Head injury. COMPARISON: None. FINDINGS: No intracranial hemorrhage, mass effect, hydrocephalus or extra-axial fluid collections. No CT evidence of a territorial infarction. Osseous structures are intact. Mild mucosal thickening in the left sphenoid. The mastoids are clear. IMPRESSION: 1. No acute intracranial CT findings. 2. Mild mucosal thickening in the left sphenoid sinus. Dictated on workstation # [id number] Dict: 04/24/21 1313 Trans: 04/24/21 1318 CV [id number] Interpreted by: NICHOLAS ROBERTSON MD Electronically signed by: Departure Impression Primary Impression: Syncope Qualified Codes: R55 - Syncope and collapse Additional Impressions: Dizziness Head injury Qualified Codes: S09.90XA - Unspecified injury of head, initial encounter Disposition: HOME, SELF-CARE Condition: Stable Departure-Patient Inst. Decision time for Depature: 13:53 Referrals: AUSTIN RICHARDSON DENNIS G MD (PCP/Family) Primary Care Physician CHACHA SOTO MD Patient Instructions: Syncope (Fainting) (DC), Vertigo (a Type of Dizziness) (DC), Closed Head Injury (DC) Add. Discharge Instructions: Treat plenty of fluids and eat a normal diet. Get some rest. It is very important that you follow-up with your doctor for recheck and further evaluation. You should follow-up with a primary care physician as well. Return for worse pain, fever, vomiting, weakness, breathing problems or other concerns as needed. You may take [id number]-[id number] meclizine 25 mg 1 tablet every 8 hours as needed for dizziness. You may also take Tylenol/acetaminophen 1000 mg every 6-8 hours as needed for headache. TOBY HUERTA MD Apr 24, 2021 12:39
[2021-04-24 12:45] LABS: BASOPHILS % (AUTO) 0 % (0-10); EOSINOPHILS # (AUTO) 0.2 10^3/uL (0.0-0.3); EOSINOPHILS % (AUTO) 2 % (0-10); HEMATOCRIT 40 % (35-52); HEMOGLOBIN 12.1 g/dL (11.5-16.0); LYMPHOCYTES % (AUTO) 21 % (12-44); MEAN CORPUSCULAR HEMOGLOBIN 25 pg (25-34); MEAN CORPUSCULAR HGB CONC 30 g/dL (32-36); MEAN CORPUSCULAR VOLUME 81 fL (80-99); MEAN PLATELET VOLUME 11.1 fL (9.0-12.2); MONOCYTES # (AUTO) 0.6 10^3/uL (0.0-1.0); MONOCYTES % (AUTO) 6 % (0-12); NEUTROPHILS # (AUTO) 6.7 10^3/uL (1.8-7.8); NEUTROPHILS % (AUTO) 71 % (42-75); PLATELET COUNT 311 10^3/uL (130-400); WHITE BLOOD COUNT 9.5 10^3/uL (4.3-11.0)
[2021-04-24 12:53] LABS: ALBUMIN 3.8 GM/DL (3.2-4.5); POTASSIUM 3.9 MMOL/L (3.6-5.0)
[2021-04-24 12:55] LABS: CALCIUM 9.2 MG/DL (8.5-10.1)
[2021-04-24 12:56] LABS: TOTAL PROTEIN 7.6 GM/DL (6.4-8.2)
[2021-04-24 12:58] LABS: BILIRUBIN,TOTAL 0.3 MG/DL (0.1-1.0)
[2021-04-24 13:00] LABS: CREATININE SERUM 0.75 MG/DL (0.60-1.30)
[2021-04-24 13:01] LABS: BILIRUBIN,URINE NEGATIVE (NEGATIVE); CLARITY,URINE SL CLOUDY; COLOR,URINE YELLOW; GLUCOSE, URINE (UA) NEGATIVE (NEGATIVE); KETONES,URINE TRACE (NEGATIVE); LEUKOCYTE ESTERASE ,URINE NEGATIVE (NEGATIVE); NITRITE,URINE NEGATIVE (NEGATIVE); PROTEIN,URINE NEGATIVE (NEGATIVE)
[2021-04-24 13:13] LABS: WBC,URINE 0-2 /HPF
[2021-04-24 13:14] LABS: AMORPHOUS SEDIMENT,UR FEW AMOR URATES /LPF; BACTERIA,URINE TRACE /HPF
[2021-04-24 13:17] LABS: ERYTHROCYTE SEDIMENTATION RATE 32 MM/HR (0-20)
--- NOTE | 2021-04-24 13:18 | Diagnostic Imaging Report ---
PROCEDURE: CT head without contrast. TECHNIQUE: Multiple contiguous axial images were obtained through the brain without the use of intravenous contrast. Auto Exposure Controls were utilized during the CT exam to meet ALARA standards for radiation dose reduction. INDICATION: Fall. Head injury. COMPARISON: None. FINDINGS: No intracranial hemorrhage, mass effect, hydrocephalus or extra-axial fluid collections. No CT evidence of a territorial infarction. Osseous structures are intact. Mild mucosal thickening in the left sphenoid. The mastoids are clear. IMPRESSION: 1. No acute intracranial CT findings. 2. Mild mucosal thickening in the left sphenoid sinus. Dictated by: Dictated on workstation # [id number]
[2021-04-24] MEDS ORDERED: ACETAMINOPHEN 500 MG TAB (TYLENOL) PO STA (13:49)
[2021-04-24] MEDS ORDERED: MECLIZINE 25 MG (ANTIVERT) TAB PO ONE (14:00)
[2021-04-24 14:09] VITALS: BP 120/80
== END 2021-04-24 14:12 | disposition home or self-care (01) ==
LOC: EDUNIT# 12:18 → ER 12:20
DX: S09.90XA Unspecified injury of head, initial encounter (principal); R55 Syncope and collapse; J45.909 Unspecified asthma, uncomplicated; F32.9 Major depressive disorder, single episode, unspecified; W22.8XXA Striking against or struck by other objects, initial encounter
CPT/HCPCS: 36415; 70450; 80053; 81000; 84703; 85025; 85379; 85652; 93005

== ENCOUNTER 2021-05-10 18:27 | Emergency (ER) | payer MEDICAID ==
[~2021-05-10] VITALS: Ht 175 cm; Wt 104.3 kg
[2021-05-10 19:07] LABS: BILIRUBIN,URINE NEGATIVE (NEGATIVE); COLOR,URINE YELLOW; GLUCOSE, URINE (UA) NEGATIVE (NEGATIVE); KETONES,URINE NEGATIVE (NEGATIVE); LEUKOCYTE ESTERASE ,URINE NEGATIVE (NEGATIVE); NITRITE,URINE NEGATIVE (NEGATIVE); PROTEIN,URINE NEGATIVE (NEGATIVE)
[2021-05-10 19:12] LABS: CLARITY,URINE SL CLOUDY
[2021-05-10 19:14] LABS: BACTERIA,URINE FEW /HPF; WBC,URINE 0-2 /HPF
--- NOTE | 2021-05-10 19:33 | ED Syncope ---
General Chief Complaint: Dizziness/Syncope Stated Complaint: PASSING OUT Source of Information: Patient Exam Limitations: No Limitations History of Present Illness Date Seen by Provider: May 10, 2021 Time Seen by Provider: 19:15 Initial Comments Patient to ER by private conveyance from home with chief complaint of another syncopal episode today. She been having for the past month and a half. She says she gets tingling in her hands and toes. She feels hot and cold flashes just prior to having her syncopal episodes. She sometimes feels nauseated after she passes out. The first time she felt dizzy not quite like the room was spinning but lightheaded like she was going to pass out. She says she fell to the ground struck her head against a concrete wall on then passed out. This time she says she felt similar and passed out and then fell. She is not having any palpitations or significant chest pain cough fever chills nausea vomiting urinary frequency. She says she is felt a little bit of nausea after her syncopal episodes and this has made her have a poor appetite and therefore she is not drinking as well as usual. 2 days ago the patient presented to the ER at [place], [place] and was given some IV fluids and labs checked and told her everything was okay. Last week she saw Yani at [facility] and was given labs and told her everything looked okay except that her iron was a little low and she was to start taking iron tablets. She was then referred to Dr. Juares who she has an appointment with tomorrow. She supposed to be getting fitted for a monitor study. She takes Tylenol and ibuprofen as necessary. She was on control until a month ago but she stopped it thinking it might have been a day with her syncopal episodes. She has no significant personal or family history. Allergies and Home Medications Allergies Coded Allergies: No Known Drug Allergies (Unverified , 10/11/19) Patient Home Medication List Home Medication List Reviewed: Yes Albuterol Sulfate (Proair Hfa) 1 Puff Puff, 2 PUFF IH Q4H PRN for COUGH Prescribed by: ALHAJI CUMMINGS on 03/19/21 2317 Benzonatate (Tessalon Perle) 100 Mg Capsule, 100 MG PO Q6H PRN for COUGH Prescribed by: ALHAJI CUMMINGS on 03/19/212202 Citalopram Hydrobromide (Citalopram HBr) 20 Mg Tablet, (Reported) Entered as Reported by: KADY GARZA on 03/19/212137 Norgestimate-Ethinyl Estradiol (Sprintec 28 Day Tablet) 1 Each Tablet, (Reported) Entered as Reported by: KADY GARZA on 03/19/212137 Ondansetron (Ondansetron Odt) 4 Mg Tab.rapdis, 4 MG PO Q6H PRN for NAUSEA/VOMITING Prescribed by: ALHAJI CUMMINGS on 03/19/212202 Ondansetron (Ondansetron Odt) 4 Mg Tab.rapdis, 4 MG PO Q4H Prescribed by: SIDNEY ZUNIGA on 03/26/212250 Review of Systems Constitutional: see HPI; No chills, No diaphoresis; dizziness; No fever, No malaise EENTM: No hearing loss, No ear pain Respiratory: No cough, No short of breath Cardiovascular: No edema, No Hx of Intervention, No palpitations Gastrointestinal: No abdominal pain, No nausea, No vomiting Genitourinary: No dysuria, No frequency, No hematuria Musculoskeletal: No back pain, No joint pain All Other Systems Reviewed Negative Unless Noted: Yes Past Idphhjh-Igstnq-Btssda Hx Patient Social History Tobacco Use?: No Use of E-Cig and/or Vaping dev: No Substance use?: No Alcohol Use?: No Immunizations Up To Date Tetanus Booster (TDap): Unknown PED Vaccines UTD: Yes Seasonal Allergies Seasonal Allergies: Yes Past Medical History Surgery/Hospitalization HX: 01/14/21, ASTHMA Surgeries: Yes Section Respiratory: Yes Asthma Cardiac: No Neurological: No Reproductive Disorders: No Genitourinary: No Gastrointestinal: No Musculoskeletal: No Endocrine: No HEENT: No Cancer: No Psychosocial: Yes Depression Integumentary: No Recent Skin Changes Blood Disorders: No Family Medical History Cancer Physical Exam Vital Signs Vital Signs - First Documented 05/10/21 18:55 Temp 36.7 Pulse 108 Resp 18 B/P (MAP) 128/87 (101) Pulse Ox 98 O2 Delivery Room Air Capillary Refill : Height, Weight, BMI Height: '" Weight: lbs. oz. kg; 32.00 BMI Method: General Appearance: No Apparent Distress, Obese HEENT: PERRL/EOMI; No Pharynx Normal (Oropharynx is mildly dry), No Moist Mucous Membranes Neck: Full Range of Motion, Normal Inspection, Non Tender Cardiovascular: Regular Rate, Rhythm, No Edema, Normal Peripheral Pulses Respiratory: Lungs Clear, Normal Breath Sounds, No Accessory Muscle Use, No R espiratory Distress Extremities: Normal Capillary Refill, Normal Inspection, No Calf Tenderness, No Pedal Edema Neurologic/Psychiatric: Alert, Oriented x3, No Motor/Sensory Deficits, Other (Mildly anxious affect) Cranial Nerves: Normal Hearing, Normal Speech, PERRL (3 mm bilateral reactive symmetric) Skin: Normal Color, Warm/Dry Progress/Results/Core Measures Results/Orders Lab Results Laboratory Tests Test 05/10/21 18:55 05/10/21 19:33 Range/Units Urine Color YELLOW Urine Clarity SL CLOUDY Urine pH 6.0 5-9 Urine Specific [place] >=1.030 1.016-1.022 Urine Protein NEGATIVE NEGATIVE Urine Glucose (UA) NEGATIVE NEGATIVE Urine Ketones NEGATIVE NEGATIVE Urine Nitrite NEGATIVE NEGATIVE Urine Bilirubin NEGATIVE NEGATIVE Urine Urobilinogen 0.2 < = 1.0 MG/DL Urine Leukocyte Esterase NEGATIVE NEGATIVE Urine RBC (Auto) NEGATIVE NEGATIVE Urine RBC NONE /HPF Urine WBC 0-2 /HPF Urine Squamous Epithelial Cells 5-10 /HPF Urine Crystals NONE /LPF Urine Bacteria FEW H /HPF Urine Casts NONE /LPF Urine Mucus MODERATE H /LPF Urine Culture Indicated NO White Blood Count 10.2 4.3-11.0 10^3/uL Red Blood Count 4.95 3.80-5.11 10^6/uL Hemoglobin 12.2 11.5-16.0 g/dL Hematocrit 40 35-52 % Mean Corpuscular Volume 81 80-99 fL Mean Corpuscular Hemoglobin 25 25-34 pg Mean Corpuscular Hemoglobin Concent 31 L 32-36 g/dL Red Cell Distribution Width 15.5 H 10.0-14.5 % Platelet Count 256 130-400 10^3/uL Mean Platelet Volume 11.6 9.0-12.2 fL Immature Granulocyte % (Auto) 0 % Neutrophils (%) (Auto) 71 42-75 % Lymphocytes (%) (Auto) 21 12-44 % Monocytes (%) (Auto) 5 0-12 % Eosinophils (%) (Auto) 2 0-10 % Basophils (%) (Auto) 0 0-10 % Neutrophils # (Auto) 7.3 1.8-7.8 10^3/uL Lymphocytes # (Auto) 2.1 1.0-4.0 10^3/uL Monocytes # (Auto) 0.5 0.0-1.0 10^3/uL Eosinophils # (Auto) 0.2 0.0-0.3 10^3/uL Basophils # (Auto) 0.0 0.0-0.1 10^3/uL Immature Granulocyte # (Auto) 0.0 0.0-0.1 10^3/uL Sodium Level 138 135-145 MMOL/L Potassium Level 4.2 3.6-5.0 MMOL/L Chloride Level 106 98-107 MMOL/L Carbon Dioxide Level 21 21-32 MMOL/L Anion Gap 11 5-14 MMOL/L Blood Urea Nitrogen 16 7-18 MG/DL Creatinine 0.80 0.60-1.30 MG/DL Estimat Glomerular Filtration Rate 91 BUN/Creatinine Ratio 20 Glucose Level 106 H 70-105 MG/DL Calcium Level 10.0 8.5-10.1 MG/DL Corrected Calcium 9.9 8.5-10.1 MG/DL Total Bilirubin 0.2 0.1-1.0 MG/DL Aspartate Amino Transf (AST/SGOT) 20 5-34 U/L Alanine Aminotransferase (ALT/SGPT) 28 0-55 U/L Alkaline Phosphatase 72 40-136 U/L Total Protein 7.7 6.4-8.2 GM/DL Albumin 4.1 3.2-4.5 GM/DL My Orders Orders - ALHAJI CUMMINGS Cbc With Automated Diff (05/10/21 18:32) Comprehensive Metabolic Panel (05/10/21 18:32) Ekg Tracing (05/10/21 18:32) Continuous Ekg Monitoring (05/10/21 18:32) Ua Culture If Indicated (05/10/21 18:32) Urine Bedside (05/10/21 18:32) Orthostatic Vital Signs (Adult (05/10/21 19:33) Ed Iv/Invasive Line Start (05/10/21 19:48) Lactated Ringers (Lr 1000 Ml Iv Solution (05/10/21 20:00) Ondansetron Injection (Zofran Injectio (05/10/21 20:00) Meclizine Tablet (Antivert Tablet) (05/10/21 20:00) Medications Given in ED Current Medications Medications Dose Ordered Sig/Devonte Route Start Time Stop Time Status Last Admin Dose Admin Lactated Ringer's 1,000 ml @ 0 mls/hr Q0M ONCE IV 05/10/21 20:00 05/10/21 20:01 DC 05/10/21 20:08 1,000 MLS/HR Meclizine HCl 25 mg ONCE ONCE PO 05/10/21 20:00 05/10/21 20:01 DC 05/10/21 20:08 25 MG Ondansetron HCl 8 mg ONCE ONCE IVP 05/10/21 20:00 05/10/21 20:01 DC 05/10/21 20:10 8 MG Vital Signs/I&O 05/10/21 05/10/21 18:55 19:44 Temp 36.7 Pulse 108 93 104 123 Resp 18 B/P (MAP) 128/87 (101) 129/71 (90) 136/90 (105) 143/84 (103) Pulse Ox 98 O2 Delivery Room Air Progress Progress Note #1: Time: 19:36 Progress Note She does appear to be a little dry. We will do some orthostatic vital signs and give her a liter of IV fluids. Her heart rate is mildly up around 100-105 however when we talk to her it jumps up to 110-115. This is probably due to anxiety. Orthostats should reveal whether she is very dry. We will get some labs and urine to look for infection, kidney dysfunction, electrolyte dera ngement etc. EKG unremarkable. Couple weeks ago when the patient was in the ER she was given a tablet of meclizine and Tylenol for her headache and dizziness and told to follow-up which she has been doing outpatient. Progress Note #2: Time: 19:49 Progress Note Patient began to feel sensations of vertigo with the room spinning a little nausea after doing the orthostatic vital signs which were borderline positive with elevated heart rate. Plan to give her a liter of fluids, meclizine and Zofran and reexamine her. Progress Note #3: Time: 21:52 Progress Note The patient endorsed blurring of her vision when these episodes would occur so we instructed the staff to obtain a visual acuity screen. Patient declined doing this stating she always just fails that test. She does not have glasses. We discussed with her that since her symptoms seem to come on with movement of her head or changing positions and were elicited tonight by doing the orthostatics that perhaps it is BPPV and did do some teaching on Cole's maneuvers as well as encouraged her to take some meclizine which she felt did help her symptoms. Initial ECG Impression Date: May 10, 2021 Initial ECG Impression Time: 19:04 Initial ECG Rate: 104 Initial ECG Rhythm: S.Tach Initial ECG Intervals: Normal Initial ECG Impression: Normal Comment Normal sinus tach Departure Impression Primary Impression: Dizziness Disposition: HOME, SELF-CARE Condition: Stable Departure-Patient Inst. Decision time for Depature: 21:53 Referrals: [facility]/ALPA CHÁVEZ MD (PCP/Family) Primary Care Physician Patient Instructions: Vertigo (a Type of Dizziness), Vestibular Exercises Add. Discharge Instructions: I suspect that your dizziness might be related to vertigo. You should continue your work-up of your passing out episodes by following up with the escort car driver. You can try meclizine 1 tablet every 6 hours as necessary for dizziness and see if that helps with the symptoms. You can also try the Cole's maneuvers in the handout. Make a follow-up appoint with your primary care doctor after you have completed your work-up with the heart doctor to continue working on this and your other medical concerns All discharge instructions reviewed with patient and/or family. Voiced understanding. Copy Copies To 1: AUSTIN RICHARDSON TITUS J May 10, 2021 19:33
[2021-05-10 19:39] LABS: BASOPHILS % (AUTO) 0 % (0-10); EOSINOPHILS # (AUTO) 0.2 10^3/uL (0.0-0.3); EOSINOPHILS % (AUTO) 2 % (0-10); HEMATOCRIT 40 % (35-52); HEMOGLOBIN 12.2 g/dL (11.5-16.0); LYMPHOCYTES # (AUTO) 2.1 10^3/uL (1.0-4.0); LYMPHOCYTES % (AUTO) 21 % (12-44); MEAN CORPUSCULAR HEMOGLOBIN 25 pg (25-34); MEAN CORPUSCULAR HGB CONC 31 g/dL (32-36); MEAN CORPUSCULAR VOLUME 81 fL (80-99); MEAN PLATELET VOLUME 11.6 fL (9.0-12.2); MONOCYTES # (AUTO) 0.5 10^3/uL (0.0-1.0); MONOCYTES % (AUTO) 5 % (0-12); NEUTROPHILS # (AUTO) 7.3 10^3/uL (1.8-7.8); NEUTROPHILS % (AUTO) 71 % (42-75); PLATELET COUNT 256 10^3/uL (130-400); WHITE BLOOD COUNT 10.2 10^3/uL (4.3-11.0)
[2021-05-10 19:44] VITALS: BP_SYST 129; BP_SYST 136; BP_SYST 143; BP_DIAS 71; BP_DIAS 84; BP_DIAS 90
[2021-05-10] MEDS ORDERED: MECLIZINE 25 MG (ANTIVERT) TAB PO ONE (20:00)
[2021-05-10] MEDS ORDERED: ONDANSETRON 4 MG/2 ML (SDV) Z0FRAN IVP ONE (20:00)
[2021-05-10] MEDS ORDERED: LACTATED RINGERS 1,000 ML IV ONE (20:00)
[2021-05-10 20:04] LABS: ALBUMIN 4.1 GM/DL (3.2-4.5); BILIRUBIN,TOTAL 0.2 MG/DL (0.1-1.0); CREATININE SERUM 0.8 MG/DL (0.60-1.30); POTASSIUM 4.2 MMOL/L (3.6-5.0); TOTAL PROTEIN 7.7 GM/DL (6.4-8.2)
[2021-05-10 22:25] VITALS: BP 120/76
== END 2021-05-10 22:25 | disposition home or self-care (01) ==
LOC: EDUNIT# 18:27 → ER 18:30
DX: R42 Dizziness and giddiness (principal); J45.909 Unspecified asthma, uncomplicated; F32.9 Major depressive disorder, single episode, unspecified; E66.9 Obesity, unspecified; Z68.32 Body mass index [BMI] 32.0-32.9, adult; Z79.899 Other long term (current) drug therapy
CPT/HCPCS: 36415; 80053; 81000; 84703; 85025; 85027; 93005

== ENCOUNTER → 2021-05-11 | Outpatient (CLI) | payer MEDICAID | LOC: CARD 11:40 | PROVIDERS: ATTEND Nurse Practitioner Family | DX: R42 Dizziness and giddiness (principal); R55 Syncope and collapse | CPT/HCPCS: 93225; 93226 ==

== ENCOUNTER 2021-09-21 16:47 | Emergency (ER) | payer MEDICAID ==
[~2021-09-21] VITALS: Ht 175.3 cm; Wt 108.9 kg
[2021-09-21 16:52] VITALS: BP 134/82
--- NOTE | 2021-09-21 17:11 | ED Cough/URI ---
General Chief Complaint: COVID19 Suspect/Confirmed Stated Complaint: COUGH, CONGESTION, HEADACHE, CHEST TIGHTNESS Nursing Triage Note: PT ARRIVED BY PRIVATE VEHICLE WITH CHIEF COMPLAINT OF HEADACHE, CONGESTION, COUGH, SOB FOR ONE WEEK. SHE WAS EXPOSED TO 4 PEOPLE WITH COVID A LITTLE OVER A WEEK AGO, BUT TESTED NEGATIVE AT HOME ONE WEEK AGO. PT HAS TAKEN IBUPROFEN AND IT IS HELPING A LITTLE BIT. PT HAS HISTORY OF ASTHMA. PT WAS ALERT, ORIENTED X 4 AND AMBULATORY. VITALS WERE DONE, PT WAS SWABBED FOR COVID AND REPORT WAS GIVEN TO PROVIDER. Source: patient Exam Limitations: no limitations History of Present Illness Date Seen by Provider: Sep 21, 2021 Time Seen by Provider: 16:50 Initial Comments 21-year-old female with no significant past medical history coming in due to just over 1 week of cough, congestion, headache, and mild shortness of breath. She says she has been exposed to at least 4 people with COVID. She tested negative with a rapid at home test about 1 week ago. She has been taking ibuprofen as needed for headache which has been helping. Headache is mild, constant, throbbing, and denies any fever associated with it or neck stiffness. She is otherwise denying any chest pain, abdominal pain, nausea, vomiting, diarrhea, weakness, numbness, dysuria, or any other concerns Allergies and Home Medications Allergies Coded Allergies: No Known Drug Allergies (Unverified , 10/11/19) Patient Home Medication List Home Medication List Reviewed: Yes Albuterol Sulfate (Proair Hfa) 1 Puff Puff, 2 PUFF IH Q4H PRN for COUGH Prescribed by: ALHAJI CUMMINGS on 03/19/21 2317 Benzonatate (Tessalon Perle) 100 Mg Capsule, 100 MG PO Q6H PRN for COUGH Prescribed by: ALHAJI CUMMINGS on 03/19/212202 Citalopram Hydrobromide (Citalopram HBr) 20 Mg Tablet, (Reported) Entered as Reported by: KADY GARZA on 03/19/212137 Norgestimate-Ethinyl Estradiol (Sprintec 28 Day Tablet) 1 Each Tablet, (Reported) Entered as Reported by: KADY GARZA on 03/19/212137 Ondansetron (Ondansetron Odt) 4 Mg Tab.rapdis, 4 MG PO Q6H PRN for NAUSEA/VOMITING Prescribed by: ALHAJI CUMMINGS on 03/19/212202 Ondansetron (Ondansetron Odt) 4 Mg Tab.rapdis, 4 MG PO Q4H Prescribed by: SIDNEY ZUNIGA on 03/26/21 225 Review of Systems Review of Systems Constitutional: No chills, No fever EENTM: nose congestion; No blurred vision Respiratory: cough, short of breath Cardiovascular: No chest pain Gastrointestinal: No abdominal pain, No diarrhea, No nausea, No vomiting Genitourinary: no symptoms reported Musculoskeletal: no symptoms reported Skin: no symptoms reported Psychiatric/Neurological: No Symptoms Reported Hematologic/Lymphatic: No Symptoms Reported Immunological/Allergic: no symptoms reported All Other Systems Reviewed Negative Unless Noted: Yes Past Jbntnpo-Nsgtyw-Omrqdu Hx Patient Social History Tobacco Use?: No Smoking Status: Never a Smoker Substance use?: No Alcohol Use?: Yes Alcohol Frequency: Once in a while Pt feels they are or have been: No Immunizations Up To Date Tetanus Booster (TDap): Unknown PED Vaccines UTD: Yes Seasonal Allergies Seasonal Allergies: Yes Past Medical History Surgery/Hospitalization HX: 01/14/21, ASTHMA Surgeries: Yes Section Respiratory: Yes Asthma Cardiac: No Neurological: No Reproductive Disorders: No Genitourinary: No Gastrointestinal: No Musculoskeletal: No Endocrine: No HEENT: No Cancer: No Psychosocial: Yes Depression Integumentary: No Recent Skin Changes Blood Disorders: No Family Medical History Cancer Physical Exam Vital Signs - First Documented 09/21/21 16:52 Temp 35.9 Pulse 95 Resp 18 B/P (MAP) 134/82 (99) Pulse Ox 98 O2 Delivery Room Air Capillary Refill : Less Than 3 Seconds Height: '" Weight: lbs. oz. kg; 35.00 BMI Method: General Appearance: WD/WN, no apparent distress Eyes: Bilateral Eye Normal Inspection HEENT: PERRL/EOMI, normal ENT inspection, pharynx normal Neck: non-tender, full range of motion, supple, normal inspection Respiratory: chest non-tender, lungs clear, normal breath sounds, no respiratory distress, no accessory muscle use Cardiovascular: regular rate, rhythm, no edema, no murmur Gastrointestinal: normal bowel sounds, non tender, soft; No distended, No guarding, No rebound Extremities: normal range of motion, non-tender, normal inspection, no pedal edema, no calf tenderness, normal capillary refill Neurologic/Psychiatric: no motor/sensory deficits, alert, normal mood/affect Skin: normal color, warm/dry Lymphatic: no adenopathy Progress/Results/Core Measures Suspected Sepsis SIRS Temperature: Pulse: 95 Respiratory Rate: 18 Blood Pressure 134 /82 Mean: 99 Results/Orders Vital Signs/I&O 09/21/21 16:52 Temp 35.9 Pulse 95 Resp 18 B/P (MAP) 134/82 (99) Pulse Ox 98 O2 Delivery Room Air Capillary Refill : Less Than 3 Seconds Blood Pressure Mean: 99 Progress Note : Progress Note 21-year-old female with above history coming in due to cough, congestion, headache, mild shortness of breath. ABCs were intact and vitals are stable on presentation. She is breathing comfortably, well-appearing, clear lung sounds, and her oxygen saturation is normal even with ambulation. Clinically she likely does have COVID, especially given she was around multiple positive people. We will send a send out test which should be back in the next couple of days. No clinical evidence of pneumonia or other concerns, so we will forego a chest x- ray at this time. I believe she is stable for discharge with outpatient follow- up. She was sent home with strict return precautions Departure Impression Primary Impression: Person under investigation for COVID-19 Disposition: 01 HOME, SELF-CARE Condition: Stable Departure-Patient Inst. Decision time for Depature: 17:09 Referrals: ALPA GAO MD (PCP/Family) Primary Care Physician Patient Instructions: COVID-19 ED Add. Discharge Instructions: You were seen in the emergency department for your cough, congestion, headache, and feeling short of breath. Your vitals were normal including your oxygen. Your lungs sound really clear and do not sound like you have pneumonia. I recommend taking gpft-fhp-ghzbrox DayQuil or NyQuil. You can take ibuprofen on top of this for headaches. Drink plenty of fluids. If you begin feeling really short of breath, to the point where you are unable to walk or you have any other concerns you can call your regular doctor or come back to the ER. Your COVID test should be back in the next day or so. You have been symptomatic long enough that you can injure quarantine, but I recommend wearing a mask for a while. Work/School Note: Work Release Form Date Seen in the Emergency Department: Sep 21, 2021 Return to Work: Sep 23, 2021 Restrictions: Return-No Fever (24hrs) RASHEL CRANE MD Sep 21, 2021 17:10
== END 2021-09-21 17:15 | disposition home or self-care (01) ==
LOC: EDUNIT# 16:47 → ER 16:48
DX: Z20.822 Contact with and (suspected) exposure to COVID-19 (principal); J45.909 Unspecified asthma, uncomplicated; F32.9 Major depressive disorder, single episode, unspecified; Z79.899 Other long term (current) drug therapy
CPT/HCPCS: 87635; 99283

== ENCOUNTER 2021-10-02 15:00 | Emergency (ER) | payer MEDICAID ==
[~2021-10-02] VITALS: Ht 175.3 cm; Wt 104.0 kg
--- NOTE | 2021-10-02 15:27 | ED General ---
General Stated Complaint: CP, SOA Source of Information: Patient Exam Limitations: No Limitations History of Present Illness Date Seen by Provider: Oct 02, 2021 Time Seen by Provider: 15:25 Initial Comments to ER by private vehicle with reports of central chest pain sharp in nature worsened by deep breathing she had a nonproductive cough. She had 2+ home Covid test on 09/26/2021 but was not symptomatic at that time. Subsequently 2 days later she developed a cough and intermittent fevers. Unvaccinated against Covid. Timing/Duration: 1-2 Days Severity: Moderate Associated Systoms: Chest Pain, Cough Allergies and Home Medications Allergies Coded Allergies: No Known Drug Allergies (Unverified , 10/11/19) Patient Home Medication List Home Medication List Reviewed: Yes Albuterol Sulfate (Proair Hfa) 1 Puff Puff, 2 PUFF IH Q4H PRN for COUGH Prescribed by: ALHAJI CUMMINGS on 03/19/212316 Benzonatate (Tessalon Perle) 100 Mg Capsule, 100 MG PO Q6H PRN for COUGH Prescribed by: ALHAJI CUMMINGS on 03/19/212202 Citalopram Hydrobromide (Citalopram HBr) 20 Mg Tablet, (Reported) Entered as Reported by: AKDY GARZA on 03/19/212137 Norgestimate-Ethinyl Estradiol (Sprintec 28 Day Tablet) 1 Each Tablet, (Reported) Entered as Reported by: KADY GARZA on 03/19/212137 Ondansetron (Ondansetron Odt) 4 Mg Tab.rapdis, 4 MG PO Q6H PRN for NAUSEA/VOMITING Prescribed by: ALHAJI CUMMINGS on 03/19/212202 Ondansetron (Ondansetron Odt) 4 Mg Tab.rapdis, 4 MG PO Q4H Prescribed by: SIDNEY ZUNIGA on 03/26/21 225 Review of Systems Review of Systems Constitutional: see HPI EENTM: see HPI Respiratory: see HPI, cough Cardiovascular: see HPI, chest pain Genitourinary: no symptoms reported Musculoskeletal: no symptoms reported Skin: no symptoms reported Psychiatric/Neurological: No Symptoms Reported Hematologic/Lymphatic: No Symptoms Reported Past Syqeova-Zeoowy-Obrrrx Hx Immunizations Up To Date Tetanus Booster (TDap): Unknown PED Vaccines UTD: Yes Seasonal Allergies Seasonal Allergies: Yes Past Medical History Surgery/Hospitalization HX: 01/14/21, ASTHMA Surgeries: Yes Section Respiratory: Yes Asthma Cardiac: No Neurological: No Reproductive Disorders: No Genitourinary: No Gastrointestinal: No Musculoskeletal: No Endocrine: No HEENT: No Cancer: No Psychosocial: Yes Depression Integumentary: No Recent Skin Changes Blood Disorders: No Family Medical History Cancer Physical Exam Vital Signs Capillary Refill : Height, Weight, BMI Height: '" Weight: lbs. oz. kg; 35.00 BMI Method: General Appearance: No Apparent Distress, WD/WN, Obese, Other (No distress heart rate 95-100 oxygen 99 to 100% on room air.) Respiratory: No Accessory Muscle Use, No Respiratory Distress Cardiovascular: Regular Rate, Rhythm, Normal Peripheral Pulses Gastrointestinal: Normal Bowel Sounds, Non Tender, Soft Extremity: Normal Capillary Refill, Normal Inspection Neurologic/Psychiatric: Alert, Oriented x3 Progress/Results/Core Measures Suspected Sepsis SIRS Temperature: Pulse: Respiratory Rate: Blood Pressure / Mean: Results/Orders My Orders Orders - ALEXIS GRAMAJO APRN Chest 1 View, Ap/Pa Only (10/02/21 15:19) Ekg Tracing (10/02/21 15:23) Cbc With Automated Diff (10/02/21 15:23) Hs C Reactive Protein (10/02/21 15:23) Troponin I Juan Jose (10/02/21 15:23) Ed Iv/Invasive Line Start (10/02/21 15:23) Hcg,Qualitative Serum (10/02/21 15:23) Ketorolac Injection (Toradol Injection) (10/02/21 15:30) Coronavirus Sars-Cov-2 So 2018 (10/02/21 15:23) Vital Signs/I&O Capillary Refill : Departure Communication (Admissions) EKG shows sinus rhythm at 96 without ectopy normal intervals no ST segment change Impression Primary Impression: COVID-19 Disposition: 01 HOME, SELF-CARE Condition: Stable Departure-Patient Inst. Decision time for Depature: 15:26 Referrals: ALPA GAO MD (PCP/Family) Primary Care Physician Patient Instructions: COVID-19 (DC) Add. Discharge Instructions: 1. Tylenol and ibuprofen for fever and pain control. You can use ragq-wty-nivufha DayQuil or NyQuil for cough and symptom control. Unfortunately expect to feel poorly for about 2 week +/-a week.. Follow-up with primary care. Work/School Note: Work Release Form Date Seen in the Emergency Department: Oct 02, 2021 Return to Work: Oct 06, 2021 ALEXIS GRAMAJO APRN Oct 02, 2021 15:27
[2021-10-02] MEDS ORDERED: KETOROLAC 30 MG/ML VIAL IVP ONE (15:30)
[2021-10-02 15:46] LABS: BASOPHILS % (AUTO) 0 % (0-10); EOSINOPHILS # (AUTO) 0.1 10^3/uL (0.0-0.3); EOSINOPHILS % (AUTO) 2 % (0-10); HEMATOCRIT 40 % (35-52); HEMOGLOBIN 12.5 g/dL (11.5-16.0); LYMPHOCYTES # (AUTO) 1.6 X 10^3 (1.0-4.0); LYMPHOCYTES % (AUTO) 24 % (12-44); MEAN CORPUSCULAR HEMOGLOBIN 25 pg (25-34); MEAN CORPUSCULAR HGB CONC 32 g/dL (32-36); MEAN CORPUSCULAR VOLUME 78 fL (80-99); MEAN PLATELET VOLUME 11.1 fL (9.0-12.2); MONOCYTES # (AUTO) 0.3 X 10^3 (0.0-1.0); MONOCYTES % (AUTO) 5 % (0-12); NEUTROPHILS # (AUTO) 4.6 X 10^3 (1.8-7.8); NEUTROPHILS % (AUTO) 69 % (42-75); PLATELET COUNT 265 10^3/uL (130-400); WHITE BLOOD COUNT 6.6 10^3/uL (4.3-11.0)
--- NOTE | 2021-10-02 15:48 | Diagnostic Imaging Report ---
Indication: Dyspnea and chest pain. Comparison: None. Discussion: Single portable upright view of the chest was obtained. Normal heart size. No consolidation, pleural fluid or pneumothorax. No osseous abnormality. Impression: 1. Negative chest. Dictated by: Dictated on workstation # [id number]
[2021-10-02 16:10] VITALS: BP 132/84
== END 2021-10-02 16:10 | disposition home or self-care (01) ==
LOC: EDUNIT# 15:00 → ER 15:02
DX: U07.1 COVID-19 (principal); J45.909 Unspecified asthma, uncomplicated
CPT/HCPCS: 36415; 71045; 84484; 84703; 85025; 86141; 87635; 93005

== ENCOUNTER 2021-11-09 19:20 | Emergency (ER) | payer MEDICAID ==
[~2021-11-09] VITALS: Ht 175 cm; Wt 131.0 kg
--- NOTE | 2021-11-09 20:47 | Diagnostic Imaging Report ---
INDICATION: Chest pain. EXAMINATION: Single AP view of the chest was obtained. COMPARISON: Study of 10/02/2021. FINDINGS: Heart size and pulmonary vascularity are within normal limits, and the lungs are clear, bilaterally. IMPRESSION: Unremarkable chest. Dictated by: Dictated on workstation # [id number]
[2021-11-09 20:54] LABS: BASOPHILS % (AUTO) 0 % (0-10)
[2021-11-09 20:56] LABS: EOSINOPHILS # (AUTO) 0.2 10^3/uL (0.0-0.3); EOSINOPHILS % (AUTO) 2 % (0-10); HEMATOCRIT 40 % (35-52); HEMOGLOBIN 12.3 g/dL (11.5-16.0); LYMPHOCYTES # (AUTO) 2.2 10^3/uL (1.0-4.0); LYMPHOCYTES % (AUTO) 23 % (12-44); MEAN CORPUSCULAR HEMOGLOBIN 25 pg (25-34); MEAN CORPUSCULAR HGB CONC 31 g/dL (32-36); MEAN CORPUSCULAR VOLUME 80 fL (80-99); MEAN PLATELET VOLUME 11.2 fL (9.0-12.2); MONOCYTES # (AUTO) 0.4 10^3/uL (0.0-1.0); MONOCYTES % (AUTO) 5 % (0-12); NEUTROPHILS # (AUTO) 6.7 10^3/uL (1.8-7.8); NEUTROPHILS % (AUTO) 71 % (42-75); PLATELET COUNT 216 10^3/uL (130-400); WHITE BLOOD COUNT 9.5 10^3/uL (4.3-11.0)
[2021-11-09 21:04] LABS: ALBUMIN 4.1 GM/DL (3.2-4.5); POTASSIUM 4.4 MMOL/L (3.6-5.0)
[2021-11-09 21:05] LABS: CALCIUM 9.3 MG/DL (8.5-10.1); INR 0.9 (0.8-1.4); PROTHROMBIN TIME PATIENT 12.7 SEC (12.2-14.7)
--- NOTE | 2021-11-09 21:05 | ED Chest Pain ---
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 RATES 4/10 AT THIS X. 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 PT STATES HAS ELEVATED CRP LEVELS. PT STATES HAS BEEN HAVING SPELLS SINCE APRIL, PT STATES HAS ALOT OF STRESS FROM EVERYDAY LIFE. Source: patient Exam Limitations: no limitations (ALEXIS GRAMAJO APRN) History of Present Illness Date Seen by Provider: Nov 09, 2021 Time Seen by Provider: 20:10 Initial Comments To er by private vehicle with reports of left-sided chest pain behind the left breast. This was sharp in nature. It was tender to palpation. It lasted for about 7 minutes before resolving spontaneously. The pain did radiate down the left arm. She had some flushing sensation with it as well. She is 10 months . Timing/Duration: 1-3 hours Severity/Quality: moderate Radiation: arms Prior CP/Workup: no prior chest pain ASA po HOSTEL PARENT: No NTG SL HOSTEL PARENT: No Associated Symptoms: denies symptoms (ALEXIS GRAMAJO APRN) Allergies and Home Medications Allergies Coded Allergies: No Known Drug Allergies (Unverified , 10/11/19) Patient Home Medication List Home Medication List Reviewed: Yes (ALEXIS GRAMAJO APRN) Albuterol Sulfate (Proair Hfa) 1 Puff Puff, 2 PUFF IH Q4H PRN for COUGH Prescribed by: ALHAJI CUMMINGS on 03/19/212316 Benzonatate (Tessalon Perle) 100 Mg Capsule, 100 MG PO Q6H PRN for COUGH Prescribed by: ALHAJI CUMMINGS on 03/19/212202 Citalopram Hydrobromide (Citalopram HBr) 20 Mg Tablet, (Reported) Entered as Reported by: KADY GARZA on 03/19/212137 Norgestimate-Ethinyl Estradiol (Sprintec 28 Day Tablet) 1 Each Tablet, (Reported) Entered as Reported by: KADY GARZA on 03/19/212137 Ondansetron (Ondansetron Odt) 4 Mg Tab.rapdis, 4 MG PO Q6H PRN for NAUSEA/VOMITING Prescribed by: ALHAJI CUMMINGS on 03/19/212202 Ondansetron (Ondansetron Odt) 4 Mg Tab.rapdis, 4 MG PO Q4H Prescribed by: SIDNEY ZUNIGA on 03/26/212250 Review of Systems Review of Systems Constitutional: see HPI EENTM: No Symptoms Reported Respiratory: No Symptoms Reported Cardiovascular: See HPI, Chest Pain Gastrointestinal: No Symptoms Reported Genitourinary: No Symptoms Reported Musculoskeletal: no symptoms reported Skin: no symptoms reported Psychiatric/Neurological: No Symptoms Reported Endocrine: No Symptoms Reported Hematologic/Lymphatic: No Symptoms Reported (ALEXIS GRAMAJO APRN) Past Srxtzck-Eqvfzi-Xgwcvp Hx Patient Social History Tobacco Use?: No Substance use?: No Alcohol Use?: No Pt feels they are or have been: No (ALEXIS GRAMAJO APRN) Immunizations Up To Date Tetanus Booster (TDap): Unknown PED Vaccines UTD: Yes First/Initial COVID19 Vaccinat: NONE Second COVID19 Vaccination Tyrell: NONE Third COVID19 Vaccination Date: NONE (ALEXIS GRAMAJO APRN) Seasonal Allergies Seasonal Allergies: Yes (ALEXIS GRAMAJO APRN) Past Medical History Surgery/Hospitalization HX: 01/14/21, ASTHMA Surgeries: Yes Section Respiratory: Yes Asthma Cardiac: No Neurological: No Last Menstrual Period: Oct 05, 2021 Reproductive Disorders: No Genitourinary: No Gastrointestinal: No Musculoskeletal: No Endocrine: No HEENT: No Cancer: No Psychosocial: Yes Depression Integumentary: No Recent Skin Changes Blood Disorders: No (ALEXIS GRAMAJO APRN) Family Medical History Cancer (ALEXIS GRAMAJO APRN) Physical Exam Vital Signs Vital Signs - First Documented 11/09/21 20:10 Temp 36.7 Pulse 105 Resp 18 B/P (MAP) 133/93 (106) Pulse Ox 98 (SIDNEY ZUNIGA DO) Vital Signs Capillary Refill : Less Than 3 Seconds (ALEXIS GRAMAJO APRN) Height, Weight, BMI Height: '" Weight: lbs. oz. kg; 42.00 BMI Method: General Appearance: No Apparent Distress, WD/WN Neck: Full Range of Motion, Normal Inspection Respiratory: Normal Breath Sounds, No Accessory Muscle Use, No Respiratory Distress Cardiovascular: Regular Rate, Rhythm, Normal Peripheral Pulses Gastrointestinal: Normal Bowel Sounds, Non Tender, Soft Extremity: Normal Capillary Refill, Normal Inspection Neurologic/Psychiatric: Alert, Oriented x3 Skin: Normal Color, Warm/Dry (ALEXIS GRAMAJO APRN) Progress/Results/Core Measures Results/Orders Lab Results Laboratory Tests Test 11/09/21 20:47 Range/Units White Blood Count 9.5 4.3-11.0 10^3/uL Red Blood Count 4.98 3.80-5.11 10^6/uL Hemoglobin 12.3 11.5-16.0 g/dL Hematocrit 40 35-52 % Mean Corpuscular Volume 80 80-99 fL Mean Corpuscular Hemoglobin 25 25-34 pg Mean Corpuscular Hemoglobin Concent 31 L 32-36 g/dL Red Cell Distribution Width 15.9 H 10.0-14.5 % Platelet Count 216 130-400 10^3/uL Mean Platelet Volume 11.2 9.0-12.2 fL Immature Granulocyte % (Auto) 0 % Neutrophils (%) (Auto) 71 42-75 % Lymphocytes (%) (Auto) 23 12-44 % Monocytes (%) (Auto) 5 0-12 % Eosinophils (%) (Auto) 2 0-10 % Basophils (%) (Auto) 0 0-10 % Neutrophils # (Auto) 6.7 1.8-7.8 10^3/uL Lymphocytes # (Auto) 2.2 1.0-4.0 10^3/uL Monocytes # (Auto) 0.4 0.0-1.0 10^3/uL Eosinophils # (Auto) 0.2 0.0-0.3 10^3/uL Basophils # (Auto) 0.0 0.0-0.1 10^3/uL Immature Granulocyte # (Auto) 0.0 0.0-0.1 10^3/uL Percent Immature Platelet Fraction 8.5 H 0.0-7.6 % Prothrombin Time 12.7 12.2-14.7 SEC INR Comment 0.9 0.8-1.4 Activated Partial Thromboplast Time 32 24-35 SEC D-Dimer 0.32 0.00-0.49 UG/ML Sodium Level 137 135-145 MMOL/L Potassium Level 4.4 3.6-5.0 MMOL/L Chloride Level 107 98-107 MMOL/L Carbon Dioxide Level 18 L 21-32 MMOL/L Anion Gap 12 5-14 MMOL/L Blood Urea Nitrogen 16 7-18 MG/DL Creatinine 0.76 0.60-1.30 MG/DL Estimat Glomerular Filtration Rate 114 BUN/Creatinine Ratio 21 Glucose Level 117 H 70-105 MG/DL Calcium Level 9.3 8.5-10.1 MG/DL Corrected Calcium 9.2 8.5-10.1 MG/DL Magnesium Level 1.9 1.6-2.4 MG/DL Total Bilirubin 0.2 0.1-1.0 MG/DL Aspartate Amino Transf (AST/SGOT) 20 5-34 U/L Alanine Aminotransferase (ALT/SGPT) 17 0-55 U/L Alkaline Phosphatase 74 40-136 U/L Myoglobin 13.5 10.0-92.0 NG/ML Troponin I < 0.028 <0.028 NG/ML B-Type Natriuretic Peptide 11.1 <100.0 PG/ML Total Protein 7.7 6.4-8.2 GM/DL Albumin 4.1 3.2-4.5 GM/DL (SIDNEY ZUNIGA DO) Vital Signs/I&O 11/09/21 11/09/21 20:10 21:56 Temp 36.7 36.7 Pulse 105 90 Resp 18 18 B/P (MAP) 133/93 (106) 120/79 Pulse Ox 98 98 (SIDNEY ZUNIGA DO) Blood Pressure Mean: 106 Departure Impression Primary Impression: Chest pain Disposition: 01 HOME, SELF-CARE Condition: Stable Departure-Patient Inst. Decision time for Depature: 21:08 (ALEXIS GRAMAJO APRN) Referrals: ALPA GAO MD (PCP/Family) Primary Care Physician Patient Instructions: Chest Pain ATTENDING PHYSICIAN NOTE: I WAS PHYSICALLY PRESENT ER PHYSICIAN, BUT I WAS NOT INVOLVED IN ANY DECISION MAKING OR ANY CARE OF THIS PATIENT. (SIDNEY ZUNIGA DO) ALEXIS GRAMAJO APRN Nov 09, 2021 21:05 SIDNEY ZUNIGA DO Nov 10, 2021 00:48
[2021-11-09 21:06] LABS: TOTAL PROTEIN 7.7 GM/DL (6.4-8.2)
[2021-11-09 21:08] LABS: BILIRUBIN,TOTAL 0.2 MG/DL (0.1-1.0)
[2021-11-09 21:10] LABS: CREATININE SERUM 0.76 MG/DL (0.60-1.30)
[2021-11-09 21:13] LABS: MAGNESIUM 1.9 MG/DL (1.6-2.4)
[2021-11-09 21:56] VITALS: BP 120/79
== END 2021-11-09 21:56 | disposition home or self-care (01) ==
LOC: EDUNIT# 19:20 → ER 19:21
DX: R07.9 Chest pain, unspecified (principal)
CPT/HCPCS: 36415; 71045; 80053; 83735; 83874; 83880; 84484; 85025; 85379; 85610; 85730; 93005; 93041

== ENCOUNTER 2021-12-28 09:32 | Emergency (ER) | payer MEDICAID ==
[~2021-12-28] VITALS: Ht 175 cm; Wt 108.0 kg
[2021-12-28 09:40] VITALS: BP 140/97
--- NOTE | 2021-12-28 11:09 | ED General ---
General Chief Complaint: COVID19 Suspect/Confirmed Stated Complaint: COVID EXP, CONGESTION,COUGH,LOSS OF TASTE,DIARRHEA Nursing Triage Note: ARRIVED VIA AMB TO ROOM 10. EXPOSED TO COVID 1.5 WEEKS AGO. COMPLAINS OF CONGESTION, DIARRHEA, AND LOST OF TASTE AND SMELL. Source of Information: Patient Exam Limitations: No Limitations History of Present Illness Date Seen by Provider: Dec 28, 2021 Time Seen by Provider: 09:40 Allergies and Home Medications Allergies Coded Allergies: No Known Drug Allergies (Unverified , 10/11/19) Patient Home Medication List Albuterol Sulfate (Proair Hfa) 1 Puff Puff, 2 PUFF IH Q4H PRN for COUGH Prescribed by: ALHAJI CUMMINGS on 03/19/212316 Benzonatate (Tessalon Perle) 100 Mg Capsule, 100 MG PO Q6H PRN for COUGH Prescribed by: ALHAJI CUMMINGS on 03/19/212202 Citalopram Hydrobromide (Citalopram HBr) 20 Mg Tablet, (Reported) Entered as Reported by: KADY GARZA on 03/19/212137 Norgestimate-Ethinyl Estradiol (Sprintec 28 Day Tablet) 1 Each Tablet, (Reported) Entered as Reported by: KADY GARZA on 03/19/212137 Ondansetron (Ondansetron Odt) 4 Mg Tab.rapdis, 4 MG PO Q6H PRN for NAUSEA/VOMITING Prescribed by: ALHAJI CUMMINGS on 03/19/212202 Ondansetron (Ondansetron Odt) 4 Mg Tab.rapdis, 4 MG PO Q4H Prescribed by: SIDNEY ZUNIGA on 03/26/21 225 Past Yewfgnd-Ueoavi-Dtvsee Hx Immunizations Up To Date Tetanus Booster (TDap): Unknown PED Vaccines UTD: Yes First/Initial COVID19 Vaccinat: NONE Second COVID19 Vaccination Tyrell: NONE Third COVID19 Vaccination Date: NONE Seasonal Allergies Seasonal Allergies: Yes Past Medical History Surgery/Hospitalization HX: 01/14/21, ASTHMA Surgeries: Yes Section Respiratory: Yes Asthma Cardiac: No Neurological: No Reproductive Disorders: No Genitourinary: No Gastrointestinal: No Musculoskeletal: No Endocrine: No HEENT: No Cancer: No Psychosocial: Yes Depression Integumentary: No Recent Skin Changes Blood Disorders: No Family Medical History Cancer Physical Exam Vital Signs Vital Signs - First Documented 12/28/21 09:40 Temp 36.9 Pulse 104 Resp 16 B/P (MAP) 140/97 (111) Pulse Ox 98 O2 Delivery Room Air Capillary Refill : Less Than 3 Seconds Height, Weight, BMI Height: '" Weight: lbs. oz. kg; 35.00 BMI Method: Progress/Results/Core Measures Suspected Sepsis SIRS Temperature: Pulse: 104 Respiratory Rate: 16 Blood Pressure 140 /97 Mean: 111 Results/Orders Lab Results Laboratory Tests Test 12/28/21 09:50 Range/Units Influenza Type A (RT-PCR) Not Detected Not Detecte Influenza Type B (RT-PCR) Not Detected Not Detecte SARS-CoV-2 RNA (RT-PCR) Not Detected Not Detecte My Orders Orders - ROSMERY KENYON MD Covid 19 Inhouse Test (12/28/21 09:40) Influenza A And B By Pcr (12/28/21 09:40) Vital Signs/I&O 12/28/21 09:40 Temp 36.9 Pulse 104 Resp 16 B/P (MAP) 140/97 (111) Pulse Ox 98 O2 Delivery Room Air Capillary Refill : Less Than 3 Seconds Blood Pressure Mean: 111 Departure Impression Primary Impression: Influenza-like symptoms Disposition: 01 HOME, SELF-CARE Condition: Improved Departure-Patient Inst. Decision time for Depature: 11:06 Referrals: NO,LOCAL PHYSICIAN (PCP/Family) Primary Care Physician Patient Instructions: COVID-19 Overview Add. Discharge Instructions: Your influenza and COVID screening tests were negative. Because your symptoms are suspicious for COVID-19, I am advising that you stay home from work and is olate as much as possible for the next 48 hours. If COVID-like symptoms persist after 48 hours, please get retested before going back to work or stopping isolation. Drink plenty of clear liquids. You may take ibuprofen up to 600 mg every 6 hours and/or Tylenol (acetaminophen) up to 1000 mg every 6 hours as needed for fever or discomfort. If using ffks-hnb-xuzzwua cough or cold medications, please be sure not to double up on ibuprofen or acetaminophen as these may be active ingredients in other egyk-ewi-athsoah medications. Return to the ER if you have worsening symptoms. All discharge instructions reviewed with patient and/or family. Voiced understanding. Work/School Note: Work Release Form Date Seen in the Emergency Department: Dec 28, 2021 Return to Work: Dec 31, 2021 Restrictions: Return-No Fever (24hrs), Return-No Vomiting(24hrs) Other Restrictions Listed Below: January return December 31 if no further COVID- like symptoms. Restrictions: If COVID symptoms persist, retest before returning to work. ROSMERY KENYON MD Dec 28, 2021 11:09
== END 2021-12-28 11:19 | disposition home or self-care (01) ==
LOC: EDUNIT# 09:32 → ER 09:34
DX: J11.1 Influenza due to unidentified influenza virus with other respiratory manifestations (principal); Z20.822 Contact with and (suspected) exposure to COVID-19
CPT/HCPCS: 87636; 99283

== ENCOUNTER → 2022-01-13 | Outpatient (CLI) | payer MEDICAID | LOC: CARD 13:00 | PROVIDERS: ATTEND Internal Medicine Cardiovascular Disease | DX: R00.2 Palpitations (principal); R07.89 Other chest pain | CPT/HCPCS: 93225; 93226; 93306 ==

== ENCOUNTER 2022-04-06 09:14 | Emergency (ER) | payer MEDICAID ==
--- NOTE | 2022-04-06 10:33 | Diagnostic Imaging Report ---
HISTORY: Bilateral ankle pain, right worse than left. Injury this morning. TECHNIQUE: 3 views of the bilateral ankles. COMPARISON: None FINDINGS: No acute fracture or dislocation is seen in the bilateral ankles. Alignment appears normal. The ankle mortises are symmetric. There is no joint effusion. IMPRESSION: 1. No acute osseous abnormality is seen in the bilateral ankles. Dictated by: Dictated on workstation # [id number]
--- NOTE | 2022-04-06 10:56 | ED Lower Extremity ---
General Chief Complaint: Lower Extremity Stated Complaint: BI LATERAL ANKLE PAIN Nursing Triage Note: PT AMB TO FT 3 WITH C/O BILAT ANKLE PAIN, WORSE ON THE RIGHT. PT STATES SHE SLIPPED DOWN TWO STAIRS IN THE RAIN THIS MORNING AND THINKS SHE TWISTED BOTH ANKLES History of Present Illness Date Seen by Provider: Apr 06, 2022 Time Seen by Provider: 09:10 Initial Comments 21-year-old female is here with complaints of bilateral ankle pain after slipping on the front steps to her house today morning in the rain. Pt states that her right ankle hurts more than the left. Denies sensory loss, and has difficulty bearing weight on her right foot. Allergies and Home Medications Allergies Coded Allergies: No Known Drug Allergies (Unverified , 10/11/19) Patient Home Medication List Home Medication List Reviewed: Yes Albuterol Sulfate (Proair Hfa) 1 Puff Puff, 2 PUFF IH Q4H PRN for COUGH Prescribed by: ALHAJI CUMMINGS on 03/19/212316 Benzonatate (Tessalon Perle) 100 Mg Capsule, 100 MG PO Q6H PRN for COUGH Prescribed by: ALHAJI CUMMINGS on 03/19/212202 Citalopram Hydrobromide (Citalopram HBr) 20 Mg Tablet, (Reported) Entered as Reported by: KADY GARZA on 03/19/212137 Norgestimate-Ethinyl Estradiol (Sprintec 28 Day Tablet) 1 Each Tablet, (Reported) Entered as Reported by: KADY GARZA on 03/19/212137 Ondansetron (Ondansetron Odt) 4 Mg Tab.rapdis, 4 MG PO Q6H PRN for NAUSEA/VOMITING Prescribed by: ALHAJI CUMMINGS on 03/19/212202 Ondansetron (Ondansetron Odt) 4 Mg Tab.rapdis, 4 MG PO Q4H Prescribed by: SIDNEY ZUNIGA on 03/26/21 225 Review of Systems Constitutional: no symptoms reported EENTM: no symptoms reported Respiratory: no symptoms reported Cardiovascular: no symptoms reported Gastrointestinal: no symptoms reported Genitourinary: no symptoms reported Musculoskeletal: joint pain, joint swelling Skin: no symptoms reported Psychiatric/Neurological: No Symptoms Reported Past Wubjppj-Jytmeu-Tcwhfh Hx Patient Social History Tobacco Use?: No Use of E-Cig and/or Vaping dev: No Substance use?: No Alcohol Use?: Yes Alcohol Frequency: Once in a while Pt feels they are or have been: No Immunizations Up To Date Tetanus Booster (TDap): Unknown PED Vaccines UTD: Yes Influenza Vaccine Up-to-Date: No; Not Current First/Initial COVID19 Vaccinat: NONE Second COVID19 Vaccination Tyrell: NONE Third COVID19 Vaccination Date: NONE Seasonal Allergies Seasonal Allergies: Yes Past Medical History Surgery/Hospitalization HX: 01/14/21, ASTHMA Surgeries: Yes Section Respiratory: Yes Asthma Cardiac: No Neurological: No Last Menstrual Period: Apr 04, 2022 Reproductive Disorders: No Genitourinary: No Gastrointestinal: No Musculoskeletal: No Endocrine: No HEENT: No Cancer: No Psychosocial: Yes Depression Integumentary: No Recent Skin Changes Blood Disorders: No Family Medical History Cancer Physical Exam Vital Signs Vital Signs - First Documented 04/06/22 09:23 Temp 36.4 Pulse 95 Resp 16 B/P (MAP) 136/86 (103) Capillary Refill : Height, Weight, BMI Height: '" Weight: lbs. oz. kg; 35.00 BMI Method: General Appearance: WD/WN, no apparent distress HEENT: PERRL/EOMI Neck: non-tender, full range of motion Back: normal inspection, no vertebral tenderness Knees: bilateral knee normal inspection Ankles: left ankle non-tender, left ankle normal inspection, left ankle normal range of motion; right ankle abrasions/lacerations (abrasion of right 5th toe); left ankle ecchymosis; right ankle limited range of motion, right ankle pain, right ankle soft tissue tenderness, right ankle swelling Feet: left foot non-tender, left foot normal inspection, left foot normal range of motion; right foot ecchymosis, right foot swelling Neurologic/Psychiatric: no motor/sensory deficits, alert, normal mood/affect, oriented x 3 Skin: normal color Progress/Results/Core Measures Results/Orders My Orders Orders - QING ANGUIANO MD Ankle, Bilateral, 3 Views (04/06/22 09:45) Foot, Right, 3 View (04/06/22 10:59) Ibuprofen Tablet (Motrin Tablet) (04/06/22 11:00) Medications Given in ED Current Medications Medications Dose Ordered Sig/Devonte Route Start Time Stop Time Status Last Admin Dose Admin Ibuprofen 600 mg ONCE ONCE PO 04/06/22 11:00 04/06/22 11:02 DC 04/06/22 11:13 600 MG Vital Signs/I&O 04/06/22 09:23 Temp 36.4 Pulse 95 Resp 16 B/P (MAP) 136/86 (103) Blood Pressure Mean: 103 Progress Progress Note : Progress Note BILATERAL ANKLE INJURY: LEFT ANKLE STRAIN: - XR B/L ANKLE: no fracture - XR RIGHT FOOT: no fractire - ARTEMIO bandage of left foot/ ankle/ crutches - Follow up with Ortho clinic in 3 to 7 days - NSAID/ ICE Diagnostic Imaging Diagonstic Imaging: Xray Plain Films/CT/US/NM/MRI: knee, other Comments [facility], [place] NAME: MARIA E WISE [facility] REC#: [id number] PT STATUS: REG ER : 2000 PHYSICIAN: QING ANGUIANO MD ADMIT DATE: 04/06/22/ER Signed Date of Exam:04/06/22 ANKLE, BILATERAL, 3 VIEWS HISTORY: Bilateral ankle pain, right worse than left. Injury this morning. TECHNIQUE: 3 views of the bilateral ankles. COMPARISON: None FINDINGS: No acute fracture or dislocation is seen in the bilateral ankles. Alignment appears normal. The ankle mortises are symmetric. There is no joint effusion. IMPRESSION: 1. No acute osseous abnormality is seen in the bilateral ankles. Dictated by: Dictated on workstation # [id number] Dict: 04/06/22 1029 Trans: 04/06/22 1147 [id number] Interpreted by: BRANT PRATT MD Electronically signed by: BRANT PRATT MD 04/06/22 1147 [facility], [place] NAME: [facility] REC#: [id number] PT STATUS: REG ER : 2000 PHYSICIAN: QING ANGUIANO MD ADMIT DATE: 04/06/22/ER Draft Date of Exam:04/06/22 FOOT, RIGHT, 3 VIEW INDICATION: Right foot pain post fall. TECHNIQUE: AP, oblique, and lateral views of the right foot were obtained. FINDINGS: No fracture or acute bony abnormality is seen. The joint spaces are unremarkable. IMPRESSION: Negative right foot. Dictated on workstation # [id number] Dict: 04/06/22 1137 Trans: 04/06/22 1138 [id number] Interpreted by: KENDELL HAAS MD Electronically signed by: Departure Impression Primary Impression: Right ankle strain Qualified Codes: S96.911A - Strain of unspecified muscle and tendon at ankle and foot level, right foot, initial encounter Additional Impressions: Fall Qualified Codes: W19.XXXA - Unspecified fall, initial encounter Contusion of right foot Qualified Codes: S90.31XA - Contusion of right foot, initial encounter Disposition: HOME, SELF-CARE Condition: Stable Departure-Patient Inst. Referrals: NO,LOCAL PHYSICIAN (PCP/Family) Primary Care Physician Patient Instructions: Minor Contusion ED, Muscle Strain Add. Discharge Instructions: - ARTEMIO bandage of left foot/ ankle/ crutches - Follow up with Ortho clinic in 3 to 7 days: Dr Mata: call for appointment - NSAID/ ICE All discharge instructions reviewed with patient and/or family. Voiced understanding. Work/School Note: Work Release Form Date Seen in the Emergency Department: Apr 06, 2022 Return to Work: Apr 10, 2022 Restrictions: Need Release from Doctor QING ANGUIANO MD Apr 06, 2022 10:56
[2022-04-06] MEDS ORDERED: IBUPROFEN 600 MG (MOTRIN) TAB PO ONE (11:00)
--- NOTE | 2022-04-06 11:39 | Diagnostic Imaging Report ---
INDICATION: Right foot pain post fall. TECHNIQUE: AP, oblique, and lateral views of the right foot were obtained. FINDINGS: No fracture or acute bony abnormality is seen. The joint spaces are unremarkable. IMPRESSION: Negative right foot. Dictated by: Dictated on workstation # [id number]
[2022-04-06 12:07] VITALS: BP 127/82
== END 2022-04-06 12:07 | disposition home or self-care (01) ==
LOC: EDUNIT# 09:14 → ER 09:16
DX: S96.911A Strain of unspecified muscle and tendon at ankle and foot level, right foot, initial encounter (principal); S90.31XA Contusion of right foot, initial encounter; Z28.310 Unvaccinated for COVID-19; W18.40XA Slipping, tripping and stumbling without falling, unspecified, initial encounter; Y92.009 Unspecified place in unspecified non-institutional (private) residence as the place of occurrence of the external cause
CPT/HCPCS: 73630

== ENCOUNTER 2022-05-08 20:43 | Emergency (ER) | payer MEDICAID | END 2022-05-08 21:29 | disposition left against medical advice (07) | LOC: EDUNIT# 20:43 → ER 20:44 | DX: R05.9 Cough, unspecified (principal); R06.02 Shortness of breath; R68.89 Other general symptoms and signs | CPT/HCPCS: 99281 ==

== ENCOUNTER 2022-07-18 10:37 | Emergency (ER) | payer MEDICAID ==
[~2022-07-18 10:37] MED LIST changes: +ALBU8.5H6 IH; -RT-ALBUINH IH
--- NOTE | 2022-07-18 11:20 | ED Cough/URI ---
General Chief Complaint: Cough/Cold/Flu Symptoms Stated Complaint: FLU-LIKE SYMPTOMS Nursing Triage Note: PT AMB TO RM 10 WITH COMPLAINT OF COUGH, FEVER, RUNNY NOSE. STATES SYMPTOMS STARTED 4 DAYS AGO. WENT TO [facility] YESTERDAY, TESTED NEGATIVE. Source: patient Exam Limitations: no limitations History of Present Illness Date Seen by Provider: Jul 18, 2022 Time Seen by Provider: 10:50 Initial Comments Patient is a 22-year-old female who presents to the emergency room with her toddler son chief complaint fever, nasal congestion, cough. [facility] flu and COVID. She reports they were negative. Symptoms have not been ongoing for 3 to 4 days. Her appetite has been normal. No dysuria, urgency or frequency. No diarrhea. No abdominal pain. Cough is nonproductive. She is a non-smoker. No daily medications. She tells me her temperature was 104 last night. She does h ave tonsillar enlargement that is chronic but denies sore throat. No earache. No rashes. She has taken some bqyf-qhr-ltufopc Maggi-[place] without relief of symptoms. All other review of systems reviewed and negative except as stated. Timing/Duration: other (3 days) Severity/Quality: mild Prior Episodes/Possible Cause: illness exposure Associated Symptoms: cough, fever/chills, nasal congestion, nasal drainage Allergies and Home Medications Allergies Coded Allergies: No Known Drug Allergies (Unverified , 10/11/19) Patient Home Medication List Home Medication List Reviewed: Yes Albuterol Sulfate (Ventolin Hfa) 1 Puff Puff, 2 PUFF IH Q4H PRN for COUGH Prescribed by: ALHAJI CUMMINGS on 03/19/21 2317 Benzonatate (Tessalon Perle) 100 Mg Capsule, 100 MG PO Q6H PRN for COUGH Prescribed by: ALHAJI CUMMINGS on 03/19/212202 Citalopram Hydrobromide (Citalopram HBr) 20 Mg Tablet, (Reported) Entered as Reported by: KADY GARZA on 03/19/212137 Norgestimate-Ethinyl Estradiol (Sprintec 28 Day Tablet) 1 Each Tablet, (Reported) Entered as Reported by: KADY GARZA on 03/19/212137 Ondansetron (Ondansetron Odt) 4 Mg Tab.rapdis, 4 MG PO Q6H PRN for NAUSEA/VOMITING Prescribed by: ALHAJI CUMMINGS on 03/19/212202 Ondansetron (Ondansetron Odt) 4 Mg Tab.rapdis, 4 MG PO Q4H Prescribed by: ISDNEY ZUNIGA on 03/26/21 2251 Review of Systems Review of Systems Constitutional: see HPI EENTM: nose congestion Respiratory: cough Cardiovascular: no symptoms reported Gastrointestinal: no symptoms reported Genitourinary: no symptoms reported Musculoskeletal: no symptoms reported Skin: no symptoms reported Psychiatric/Neurological: No Symptoms Reported All Other Systems Reviewed Negative Unless Noted: Yes Past Nqvrwpr-Uhycud-Vriize Hx Patient Social History Tobacco Use?: No Use of E-Cig and/or Vaping dev: No Substance use?: No Alcohol Use?: No Pt feels they are or have been: No Immunizations Up To Date Tetanus Booster (TDap): Unknown PED Vaccines UTD: Yes First/Initial COVID19 Vaccinat: NONE Second COVID19 Vaccination Tyrell: NONE Third COVID19 Vaccination Date: NONE Seasonal Allergies Seasonal Allergies: Yes Past Medical History Surgery/Hospitalization HX: 01/14/21, ASTHMA Surgeries: Yes Section Respiratory: Yes Asthma Cardiac: No Neurological: No Reproductive Disorders: No Genitourinary: No Gastrointestinal: No Musculoskeletal: No Endocrine: No HEENT: No Cancer: No Psychosocial: Yes Depression Integumentary: No Recent Skin Changes Blood Disorders: No Family Medical History Cancer Physical Exam Vital Signs - First Documented 07/18/22 10:44 Temp 35.9 Pulse 128 Resp 22 B/P (MAP) 120/84 (96) Pulse Ox 97 O2 Delivery Room Air Capillary Refill : Less Than 3 Seconds Height: '" Weight: lbs. oz. kg; 35.00 BMI Method: General Appearance: WD/WN, no apparent distress Eyes: Bilateral Eye Normal Inspection, Bilateral Eye PERRL, Bilateral Eye EOMI HEENT: TMs normal, pharynx normal, other (Enlarged tonsils, no erythema, very mild exudate. No painful swallowing. No anterior cervical lymphadenopathy) Neck: full range of motion, supple, normal inspection; No lymphadenopathy (R), No lymphadenopathy (L) Respiratory: lungs clear, normal breath sounds, no respiratory distress, no accessory muscle use Cardiovascular: regular rate, rhythm Gastrointestinal: normal bowel sounds, non tender, soft Neurologic/Psychiatric: alert, normal mood/affect, oriented x 3 Skin: normal color, warm/dry Progress/Results/Core Measures Suspected Sepsis SIRS Temperature: Pulse: 128 Respiratory Rate: 22 Blood Pressure 120 /84 Mean: 96 Results/Orders Vital Signs/I&O 07/18/22 10:44 Temp 35.9 Pulse 128 Resp 22 B/P (MAP) 120/84 (96) Pulse Ox 97 O2 Delivery Room Air Capillary Refill : Less Than 3 Seconds Blood Pressure Mean: 96 Progress Note : Time: 11:42 Progress Note Clinically the patient appears well. Vital signs are stable, she is not hypoxic. Her toddler son has clear evidence of croup on examination. Likely they are sharing the same virus. She clinically does not appear dehydrated. No concerns for sepsis, pneumonia or other illness that would require hospitalization. Recommend qqpp-iha-cbnkuvs Mucinex as well as DayQuil for congestion. She is comfortable with the plan of care. All questions are sought and answered. Departure Impression Primary Impression: Acute viral syndrome Disposition: 01 HOME, SELF-CARE Condition: Stable Departure-Patient Inst. Decision time for Depature: 11:43 Referrals: [facility] (PCP/Family) Primary Care Physician Patient Instructions: Viral Syndrome (DC) Add. Discharge Instructions: Drink plenty of fluids to stay well-hydrated. Take rqrk-jkh-nwylrql ibuprofen 3 tablets which is 600 mg every 6 hours with food as needed for aches and pains and fever over 100.4. Yhkr-doi-xdhermn Mucinex to help thin your congestion/secretions. Enuo-rmb-ofuecmu DayQuil or NyQuil will also help with congestion and cough. If you run a persistent fever after 1 week especially with worsening shortness of breath or cough please return to the emergency room or follow-up with [facility] for further evaluation and management. Work/School Note: Work Release Form Date Seen in the Emergency Department: Jul 18, 2022 Return to Work: Jul 19, 2022 Copy Copies To 1: AUSTIN RICHARDSON KATHRYN M MD Jul 18, 2022 11:20
[2022-07-18 12:02] VITALS: BP 115/84
== END 2022-07-18 12:02 | disposition home or self-care (01) ==
LOC: EDUNIT# 10:37 → ER 10:38
DX: B34.9 Viral infection, unspecified (principal); R09.81 Nasal congestion; R05.9 Cough, unspecified; R50.9 Fever, unspecified; R09.89 Other specified symptoms and signs involving the circulatory and respiratory systems
CPT/HCPCS: 99283

== ENCOUNTER 2022-11-22 19:21 | Emergency (ER) | payer MEDICAID ==
[~2022-11-22] VITALS: Ht 172.7 cm; Wt 104.3 kg
[2022-11-22] MEDS ORDERED: LACTATED RINGERS 1,000 ML IV ONE ×2 (19:45→20:45)
[2022-11-22 19:46] LABS: BASOPHILS % (AUTO) 0 % (0-10); EOSINOPHILS # (AUTO) 0.2 10^3/uL (0.0-0.3); EOSINOPHILS % (AUTO) 2 % (0-10); HEMATOCRIT 39 % (35-52); HEMOGLOBIN 12.9 g/dL (11.5-16.0); LYMPHOCYTES # (AUTO) 2.3 10^3/uL (1.0-4.0); LYMPHOCYTES % (AUTO) 25 % (12-44); MEAN CORPUSCULAR HEMOGLOBIN 27 pg (25-34); MEAN CORPUSCULAR HGB CONC 33 g/dL (32-36); MEAN CORPUSCULAR VOLUME 82 fL (80-99); MEAN PLATELET VOLUME 11.1 fL (9.0-12.2); MONOCYTES # (AUTO) 0.5 10^3/uL (0.0-1.0); MONOCYTES % (AUTO) 5 % (0-12); NEUTROPHILS # (AUTO) 6.5 10^3/uL (1.8-7.8); NEUTROPHILS % (AUTO) 68 % (42-75); PLATELET COUNT 241 10^3/uL (130-400); WHITE BLOOD COUNT 9.5 10^3/uL (4.3-11.0)
[2022-11-22 19:59] LABS: CHLORIDE 108 MMOL/L (98-107); POTASSIUM 3.9 MMOL/L (3.6-5.0); SODIUM 139 MMOL/L (135-145)
[2022-11-22 20:01] LABS: CALCIUM 8.9 MG/DL (8.5-10.1)
[2022-11-22 20:02] LABS: GLUCOSE 114 MG/DL (70-105); TOTAL PROTEIN 7.4 GM/DL (6.4-8.2)
[2022-11-22 20:03] LABS: CARBON DIOXIDE 20 MMOL/L (21-32)
[2022-11-22 20:04] LABS: BILIRUBIN,TOTAL 0.3 MG/DL (0.1-1.0)
[2022-11-22 20:05] LABS: ALKALINE PHOSPHATASE 67 U/L (40-136)
[2022-11-22 20:06] LABS: CREATININE SERUM 0.81 MG/DL (0.60-1.30); GFR ESTIMATED 105
[2022-11-22 20:07] LABS: BUN/CREATININE RATIO 21
[2022-11-22 20:08] LABS: ALANINE AMINOTRANSFERASE 19 U/L (0-55)
[2022-11-22 20:10] LABS: MAGNESIUM 1.8 MG/DL (1.6-2.4)
[2022-11-22 20:12] LABS: CREATINE KINASE 58 U/L (29-168); LIPASE 15 U/L (8-78)
[2022-11-22 20:14] LABS: ERYTHROCYTE SEDIMENTATION RATE 33 MM/HR (0-20)
--- NOTE | 2022-11-22 20:18 | Diagnostic Imaging Report ---
INDICATION: Shortness of breath, bradycardia. COMPARISONS: 11/09/2021. FINDINGS: Single view chest shows normal heart, pulmonary vasculature, pleura and diaphragms with no focal opacities. Soft tissues and bony thorax are normal. IMPRESSION: No acute cardiopulmonary changes. Dictated by: Dictated on workstation # [id number]
[2022-11-22 20:19] LABS: CREATINE KINASE MB 0.7 NG/ML (<6.6)
[2022-11-22 20:43] LABS: BILIRUBIN,URINE NEGATIVE (NEGATIVE); CLARITY,URINE CLEAR; COLOR,URINE YELLOW; GLUCOSE, URINE (UA) NEGATIVE (NEGATIVE); KETONES,URINE NEGATIVE (NEGATIVE); LEUKOCYTE ESTERASE ,URINE NEGATIVE (NEGATIVE); NITRITE,URINE NEGATIVE (NEGATIVE); PROTEIN,URINE NEGATIVE (NEGATIVE)
--- NOTE | 2022-11-22 21:09 | ED General ---
General Chief Complaint: Cardiac/General Problems Stated Complaint: CHEST PAIN|FELT HEART RATE DROP|SOB Nursing Triage Note: PT AMB TO RM 2 W C/O SUDDEN CP, DIZZINESS, SOA, AND FEELING OF HR DROPPING APPROX 10 MINS [employer]. PT REPORTS SIMILAR SITUATIONS IN THE PAST. A&OX4, STATES SHE FELT LIKE SHE WAS GOING TO FALL. Source of Information: Patient History of Present Illness Date Seen by Provider: Nov 22, 2022 Time Seen by Provider: 19:32 Initial Comments PT ARRIVES VIA POV PT STATES THAT IMMEDIATELY PRIOR TO ARRIVAL--LESS THAN 10 MINUTES--SHE WAS AT A [employer] AND WAS GETTING READY TO PAY FOR MEAL, AND SUDDENLY SHE BEGAN TO HAVE CHEST PAIN, FELT LIKE HER HEART RATE "DROPPED", SHE FELT DIZZY AND FELT SHORT OF BREATH. Allergies and Home Medications Allergies Coded Allergies: No Known Drug Allergies (Unverified , 10/11/19) Patient Home Medication List Albuterol Sulfate (Ventolin Hfa) 1 Puff Puff, 2 PUFF IH Q4H PRN for COUGH Prescribed by: ALHAJI CUMMINGS on 03/19/212316 Benzonatate (Tessalon Perle) 100 Mg Capsule, 100 MG PO Q6H PRN for COUGH Prescribed by: ALHAJI CUMMINGS on 03/19/212202 Citalopram Hydrobromide (Citalopram HBr) 20 Mg Tablet, (Reported) Entered as Reported by: KADY GARZA on 03/19/212137 Norgestimate-Ethinyl Estradiol (Sprintec 28 Day Tablet) 1 Each Tablet, (Reported) Entered as Reported by: KADY GARZA on 03/19/212137 Ondansetron (Ondansetron Odt) 4 Mg Tab.rapdis, 4 MG PO Q6H PRN for NAUSEA/VOMITING Prescribed by: ALHAJI CUMMINGS on 03/19/212202 Ondansetron (Ondansetron Odt) 4 Mg Tab.rapdis, 4 MG PO Q4H Prescribed by: SIDNEY ZUNIGA on 03/26/21 225 Past Lazptdq-Pslcad-Jzcgui Hx Patient Social History Tobacco Use?: No Use of E-Cig and/or Vaping dev: No Substance use?: No Alcohol Use?: Yes Alcohol Frequency: Rarely Immunizations Up To Date Tetanus Booster (TDap): Unknown PED Vaccines UTD: Yes Influenza Vaccine Up-to-Date: No; Not Current First/Initial COVID19 Vaccinat: NONE Second COVID19 Vaccination Tyrell: NONE Third COVID19 Vaccination Date: NONE Seasonal Allergies Seasonal Allergies: Yes Past Medical History Surgery/Hospitalization HX: 01/14/21, ASTHMA Surgeries: Yes Section Respiratory: Yes Asthma Cardiac: No Neurological: No Last Menstrual Period: Nov 20, 2022 Reproductive Disorders: No Genitourinary: No Gastrointestinal: No Musculoskeletal: No Endocrine: No HEENT: No Cancer: No Psychosocial: Yes Depression Integumentary: No Recent Skin Changes Blood Disorders: No Family Medical History Cancer Physical Exam Vital Signs Vital Signs - First Documented 11/22/22 19:25 Temp 36.8 Pulse 92 Resp 20 B/P (MAP) 136/89 (105) Pulse Ox 96 O2 Delivery Room Air Capillary Refill : Less Than 3 Seconds Height, Weight, BMI Height: '" Weight: lbs. oz. kg; 34.00 BMI Method: Progress/Results/Core Measures Suspected Sepsis SIRS Temperature: Pulse: 92 Respiratory Rate: 20 Laboratory Tests 11/22/22 19:39: White Blood Count 9.5 Blood Pressure 136 /89 Mean: 105 Laboratory Tests 11/22/22 19:39: Creatinine 0.81, Platelet Count 241, Total Bilirubin 0.3 Results/Orders Lab Results Laboratory Tests Test 11/22/22 19:39 11/22/22 19:43 11/22/22 20:32 Range/Units White Blood Count 9.5 4.3-11.0 10^3/uL Red Blood Count 4.78 3.80-5.11 10^6/uL Hemoglobin 12.9 11.5-16.0 g/dL Hematocrit 39 35-52 % Mean Corpuscular Volume 82 80-99 fL Mean Corpuscular Hemoglobin 27 25-34 pg Mean Corpuscular Hemoglobin Concent 33 32-36 g/dL Red Cell Distribution Width 13.9 10.0-14.5 % Platelet Count 241 130-400 10^3/uL Mean Platelet Volume 11.1 9.0-12.2 fL Immature Granulocyte % (Auto) 0 % Neutrophils (%) (Auto) 68 42-75 % Lymphocytes (%) (Auto) 25 12-44 % Monocytes (%) (Auto) 5 0-12 % Eosinophils (%) (Auto) 2 0-10 % Basophils (%) (Auto) 0 0-10 % Neutrophils # (Auto) 6.5 1.8-7.8 10^3/uL Lymphocytes # (Auto) 2.3 1.0-4.0 10^3/uL Monocytes # (Auto) 0.5 0.0-1.0 10^3/uL Eosinophils # (Auto) 0.2 0.0-0.3 10^3/uL Basophils # (Auto) 0.0 0.0-0.1 10^3/uL Immature Granulocyte # (Auto) 0.0 0.0-0.1 10^3/uL Erythrocyte Sedimentation Rate 33 H 0-20 MM/HR D-Dimer <= 0.27 0.00-0.49 UG/ML Sodium Level 139 135-145 MMOL/L Potassium Level 3.9 3.6-5.0 MMOL/L Chloride Level 108 H 98-107 MMOL/L Carbon Dioxide Level 20 L 21-32 MMOL/L Anion Gap 11 5-14 MMOL/L Blood Urea Nitrogen 17 7-18 MG/DL Creatinine 0.81 0.60-1.30 MG/DL Estimat Glomerular Filtration Rate 105 BUN/Creatinine Ratio 21 Glucose Level 114 H 70-105 MG/DL Calcium Level 8.9 8.5-10.1 MG/DL Corrected Calcium 8.9 8.5-10.1 MG/DL Magnesium Level 1.8 1.6-2.4 MG/DL Total Bilirubin 0.3 0.1-1.0 MG/DL Aspartate Amino Transf (AST/SGOT) 14 5-34 U/L Alanine Aminotransferase (ALT/SGPT) 19 0-55 U/L Alkaline Phosphatase 67 40-136 U/L Total Creatine Kinase 58 29-168 U/L Creatine Kinase MB 0.7 <6.6 NG/ML Myoglobin 18.0 10.0-92.0 NG/ML Troponin I < 0.028 <0.028 NG/ML C-Reactive Protein High Sensitivity 0.83 H 0.00-0.50 MG/DL Total Protein 7.4 6.4-8.2 GM/DL Albumin 4.0 3.2-4.5 GM/DL Lipase 15 8-78 U/L Serum Test, Qualitative NEGATIVE NEGATIVE Acetaminophen Level < 10 L 10-30 UG/ML Serum Alcohol < 10 <10 MG/DL Influenza Type A (RT-PCR) Not Detected Not Detecte Influenza Type B (RT-PCR) Not Detected Not Detecte SARS-CoV-2 RNA (RT-PCR) Not Detected Not Detecte Urine Color YELLOW Urine Clarity CLEAR Urine pH 6.0 5-9 Urine Specific [place] 1.020 1.016-1.022 Urine Protein NEGATIVE NEGATIVE Urine Glucose (UA) NEGATIVE NEGATIVE Urine Ketones NEGATIVE NEGATIVE Urine Nitrite NEGATIVE NEGATIVE Urine Bilirubin NEGATIVE NEGATIVE Urine Urobilinogen 0.2 < = 1.0 MG/DL Urine Leukocyte Esterase NEGATIVE NEGATIVE Urine RBC (Auto) 3+ H NEGATIVE Urine RBC 10-25 H /HPF Urine WBC NONE /HPF Urine Squamous Epithelial Cells 5-10 /HPF Urine Crystals NONE /LPF Urine Bacteria TRACE /HPF Urine Casts NONE /LPF Urine Mucus NEGATIVE /LPF Urine Culture Indicated NO Urine Opiates Screen NEGATIVE NEGATIVE Urine Oxycodone Screen NEGATIVE NEGATIVE Urine Methadone Screen NEGATIVE NEGATIVE Urine Propoxyphene Screen NEGATIVE NEGATIVE Urine Barbiturates Screen NEGATIVE NEGATIVE Ur Tricyclic Antidepressants Screen NEGATIVE NEGATIVE Urine Phencyclidine Screen NEGATIVE NEGATIVE Urine Amphetamines Screen NEGATIVE NEGATIVE Urine Methamphetamines Screen NEGATIVE NEGATIVE Urine Benzodiazepines Screen NEGATIVE NEGATIVE Urine Cocaine Screen NEGATIVE NEGATIVE Urine Cannabinoids Screen NEGATIVE NEGATIVE My Orders Orders - SIDNEY ZUNIGA DO Ed Iv/Invasive Line Start (11/22/22 19:32) Ekg Tracing (11/22/22 19:32) Monitor-Rhythm Ecg Trace Only (11/22/22 19:32) Acetaminophen (11/22/22 19:32) Alcohol (11/22/22 19:32) Cbc With Automated Diff (11/22/22 19:32) Comprehensive Metabolic Panel (11/22/22 19:32) Creatine Kinase (11/22/22 19:32) Creatine Kinase Mb (11/22/22 19:32) Hs C Reactive Protein (11/22/22 19:32) Fibrin Degradation Products (11/22/22 19:32) Drug Screen Stat (Urine) (11/22/22 19:32) Hcg,Qualitative Serum (11/22/22 19:32) Lipase (11/22/22 19:32) Magnesium (11/22/22 19:32) Ua Culture If Indicated (11/22/22 19:32) Erythrocyte Sedimentation Rate (11/22/22 19:32) Myoglobin Serum (11/22/22 19:32) Troponin I Juan Jose (11/22/22 19:32) Chest 1 View, Ap/Pa Only (11/22/22 19:32) Covid 19 Inhouse Test (11/22/22 19:32) Influenza A And B By Pcr (11/22/22 19:32) Isolation Central Supply Req (11/22/22 19:32) Ed Iv/Invasive Line Start (11/22/22 19:40) Lactated Ringers (Lr 1000 Ml Iv Solution (11/22/22 19:45) Ed Iv/Invasive Line Start (11/22/22 20:37) Lactated Ringers (Lr 1000 Ml Iv Solution (11/22/22 20:45) Medications Given in ED Current Medications Medications Dose Ordered Sig/Devonte Route Start Time Stop Time Status Last Admin Dose Admin Lactated Ringer's 1,000 ml @ 0 mls/hr Q0M ONCE IV 11/22/22 19:45 11/22/22 19:46 DC 11/22/22 19:46 1,000 MLS/HR Lactated Ringer's 1,000 ml @ 0 mls/hr Q0M ONCE IV 11/22/22 20:45 11/22/22 20:46 DC 11/22/22 20:54 0 MLS/HR Vital Signs/I&O 11/22/22 19:25 Temp 36.8 Pulse 92 Resp 20 B/P (MAP) 136/89 (105) Pulse Ox 96 O2 Delivery Room Air Capillary Refill : Less Than 3 Seconds Blood Pressure Mean: 105 Progress Note : Progress Note GIVEN IV FLUIDS PT CALMED AFTER ARRIVAL, AND ALL SYMPTOMS RESOLVED. Diagnostic Imaging Comments CXR--PER RADIOLOGIST REPORT AT 210 FINDINGS: Single view chest shows normal heart, pulmonary vasculature, pleura and diaphragms with no focal opacities. Soft tissues and bony thorax are normal. IMPRESSION: No acute cardiopulmonary changes. Reviewed: Reviewed by Me Departure Impression Primary Impression: Anxiety Additional Impression: Chest pain not due to acute coronary syndrome Disposition: HOME, SELF-CARE Condition: Improved Departure-Patient Inst. Decision time for Depature: 21:32 Referrals: [facility] (PCP/Family) Primary Care Physician Patient Instructions: Chest Pain That Is Not Caused by the Heart (DC), Anxiety, Adult ED Add. Discharge Instructions: HOME, REST LOTS OF FLUIDS ACTIVITIES NORMAL FOLLOW UP WITH [facility] IF SYMPTOMS PERSIST, RETURN TO ER IF SYMPTOMS WORSEN All discharge instructions reviewed with patient and/or family. Voiced understanding. SIDNEY ZUNIGA DO Nov 22, 2022 21:09
[2022-11-22 21:11] LABS: AMPHETAMINE SCREEN, URINE NEGATIVE (NEGATIVE); BARBITURATE SCREEN URINE NEGATIVE (NEGATIVE); BENZODIAZEPINES SCREEN URINE NEGATIVE (NEGATIVE); CANNABINOID SCREEN, URINE NEGATIVE (NEGATIVE); COCAINE SCREEN URINE NEGATIVE (NEGATIVE); METHADONE STAT NEGATIVE (NEGATIVE); OPIATE SCREEN URINE NEGATIVE (NEGATIVE); OXYCODONE STAT NEGATIVE (NEGATIVE); PROPOXYPHENE STAT NEGATIVE (NEGATIVE); TRICYCLIC ANTIDEPRESSANTS SCRE NEGATIVE (NEGATIVE)
[2022-11-22 21:29] LABS: BACTERIA,URINE TRACE /HPF
[2022-11-22 21:52] VITALS: BP 110/61
== END 2022-11-22 21:49 | disposition home or self-care (01) ==
LOC: EDUNIT# 19:21 → ER 19:23
DX: F41.9 Anxiety disorder, unspecified (principal); R07.9 Chest pain, unspecified; Z20.822 Contact with and (suspected) exposure to COVID-19; Z28.310 Unvaccinated for COVID-19
CPT/HCPCS: 71045; 80053; 80306; 81000; 82550; 82553; 83690; 83735; 83874; 84484; 84703; 85025; 85379; 85652; 86141; 87636; 93041; G0480 ×2; 36415; 80320; 80329; 93005

== ENCOUNTER 2023-05-07 07:05 | Emergency (ER) | payer MEDICAID ==
[~2023-05-07] VITALS: Ht 172.7 cm; Wt 109.0 kg
[2023-05-07] MEDS ORDERED: AZITHROMYCIN 250 MG TABLET PO STA (07:56)
[2023-05-07] MEDS ORDERED: cefTRIAXone 250 MG VIAL IV/IM IM ONE (08:00)
[2023-05-07] MEDS ORDERED: LIDOCAINE 1% INJ 20 ML VIAL INJ ONE (08:00)
[2023-05-07 08:01] LABS: CLARITY,URINE CLOUDY; COLOR,URINE YELLOW; PH,URINE 5.5 (5-9)
[2023-05-07 08:02] LABS: BILIRUBIN,URINE NEGATIVE (NEGATIVE); GLUCOSE, URINE (UA) NEGATIVE (NEGATIVE); KETONES,URINE NEGATIVE (NEGATIVE); NITRITE,URINE NEGATIVE (NEGATIVE); PROTEIN,URINE 1+ (NEGATIVE)
[2023-05-07 08:03] LABS: BACTERIA,URINE LARGE /HPF; LEUKOCYTE ESTERASE ,URINE 3+ (NEGATIVE); RBC,URINE 25-50 /HPF; WBC,URINE TNTC /HPF; YEAST,URINE FEW /HPF
[2023-05-07] MEDS ORDERED: CEPH500C PO (08:24)
[2023-05-07] MEDS ORDERED: METR-145 PO (08:24)
--- NOTE | 2023-05-07 08:24 | ED GU-Female ---
General Chief Complaint: - Reproductive Stated Complaint: ABD/PELVIC PAIN Nursing Triage Note: pt states she has had lower abd/pelvic pain, frequent urination, burning with urination since early this am/last night. also states she is worried she may have an std and requests testing. Source: patient Exam Limitations: no limitations History of Present Illness Date Seen by Provider: May 07, 2023 Time Seen by Provider: 07:31 Initial Comments Here with report of lower abdominal pain, dysuria, frequency of urination and white vaginal discharge. States that she does have history of frequent BV. She is sexually active with single partner and is unsure about possibility of STDs but she does have a concern. Denies fever, chills or vomiting. Denies vaginal sores or lesions. Timing/Duration: this morning Severity/Quality: moderate Location: vaginal, urethral Radiation: none Sexual [place] History: less than 2 months ago, single partner Associated Symptoms: dysuria; No fever/chills, No nausea/vomiting; urinary frequency Allergies and Home Medications Allergies Coded Allergies: No Known Drug Allergies (Unverified , 10/11/19) Patient Home Medication List Home Medication List Reviewed: Yes Albuterol Sulfate (Ventolin Hfa) 1 Puff Puff, 2 PUFF IH Q4H PRN for COUGH Prescribed by: ALHAJI CUMMINGS on 03/19/212316 Benzonatate (Tessalon Perle) 100 Mg Capsule, 100 MG PO Q6H PRN for COUGH Prescribed by: ALHAJI CUMMINGS on 03/19/212202 Citalopram Hydrobromide (Citalopram HBr) 20 Mg Tablet, (Reported) Entered as Reported by: KADY GARZA on 03/19/212137 Norgestimate-Ethinyl Estradiol (Sprintec 28 Day Tablet) 1 Each Tablet, (Reported) Entered as Reported by: KADY GARZA on 03/19/212137 Ondansetron (Ondansetron Odt) 4 Mg Tab.rapdis, 4 MG PO Q6H PRN for NAUSEA/VOMITING Prescribed by: ALHAJI CUMMINGS on 03/19/212202 Ondansetron (Ondansetron Odt) 4 Mg Tab.rapdis, 4 MG PO Q4H Prescribed by: SIDNEY ZUNIGA on 03/26/21 2251 Review of Systems Review of Systems Constitutional: see HPI; No chills, No fever EENTM: no symptoms reported Respiratory: no symptoms reported Cardiovascular: no symptoms reported Gastrointestinal: see HPI Genitourinary: see HPI Skin: see HPI Past Loypczl-Odrsgj-Mrwuhe Hx Patient Social History Tobacco Use?: No Substance use?: No Alcohol Use?: No Immunizations Up To Date Tetanus Booster (TDap): Unknown PED Vaccines UTD: Yes First/Initial COVID19 Vaccinat: NONE Second COVID19 Vaccination Tyrell: NONE Third COVID19 Vaccination Date: NONE Seasonal Allergies Seasonal Allergies: Yes Past Medical History Surgery/Hospitalization HX: 01/14/21, ASTHMA, DM Surgeries: Yes Section Respiratory: Yes Asthma Cardiac: No Neurological: No Reproductive Disorders: No Genitourinary: No Gastrointestinal: No Musculoskeletal: No Endocrine: No HEENT: No Cancer: No Psychosocial: Yes Anxiety, Depression Integumentary: No Blood Disorders: No Family Medical History Reviewed Nursing Family Hx Cancer Physical Exam Vital Signs Vital Signs - First Documented 05/07/23 07:20 Temp 36.9 Pulse 104 Resp 18 B/P (MAP) 133/82 (99) Pulse Ox 97 Capillary Refill : Height, Weight, BMI Height: '" Weight: lbs. oz. kg; 36.00 BMI Method: General Appearance: WD/WN, no apparent distress Neck: full range of motion, supple Cardiovascular: regular rate, rhythm, no murmur Respiratory: lungs clear, normal breath sounds Gastrointestinal: non tender, soft Neurologic/Psychiatric: alert, oriented x 3 Progress/Results/Core Measures Suspected Sepsis SIRS Temperature: Pulse: 104 Respiratory Rate: 18 Blood Pressure 133 /82 Mean: 99 Results/Orders Lab Results Laboratory Tests Test 05/07/23 07:26 Range/Units Urine Color YELLOW Urine Clarity CLOUDY Urine pH 5.5 5-9 Urine Specific [place] 1.025 H 1.016-1.022 Urine Protein 1+ H NEGATIVE Urine Glucose (UA) NEGATIVE NEGATIVE Urine Ketones NEGATIVE NEGATIVE Urine Nitrite NEGATIVE NEGATIVE Urine Bilirubin NEGATIVE NEGATIVE Urine Urobilinogen 0.2 < = 1.0 MG/DL Urine Leukocyte Esterase 3+ H NEGATIVE Urine RBC (Auto) 3+ H NEGATIVE Urine RBC 25-50 H /HPF Urine WBC TNTC H /HPF Urine Squamous Epithelial Cells 2-5 /HPF Urine Crystals NONE /LPF Urine Bacteria LARGE H /HPF Urine Casts NONE /LPF Urine Mucus NEGATIVE /LPF Urine Yeast FEW H /HPF Urine Culture Indicated YES Micro Results Microbiology 05/07/23 Wet Prep - Final, Complete My Orders Orders - TOBY HUERTA MD Ua Culture If Indicated (05/07/23 07:29) Wet Prep (05/07/23 07:29) Chlamydia Trachomatis Swab (05/07/23 07:29) Neisseria Gonorrhea Swab (05/07/23 07:29) Fluconazole Tablet (Ed Only) (Fluconazol (05/07/23 08:00) Ceftriaxone Iv/Im (Ceftriaxone Iv/Im) (05/07/23 08:00) Azithromycin Tablet (Azithromycin Tabl (05/07/23 07:56) Lidocaine 1% Inj 20 Ml (Xylocaine 1% Inj (05/07/23 08:00) Urine Culture (05/07/23 07:26) Medications Given in ED Current Medications Medications Dose Ordered Sig/[place] Route Start Time Stop Time Status Last Admin Dose Admin Fluconazole 150 mg ONCE ONCE PO 05/07/23 08:00 05/07/23 08:01 DC 05/07/23 08:12 150 MG Vital Signs/I&O 05/07/23 07:20 Temp 36.9 Pulse 104 Resp 18 B/P (MAP) 133/82 (99) Pulse Ox 97 Capillary Refill : Blood Pressure Mean: 99 Progress Note : Progress Note Seen and evaluated. UA and UCG ordered. We will do swabs for wet prep, GC and chlamydia via self swab. Monitor patient. Labs reviewed and patient does have urinary tract infection based on too numerous to count white cells on urine. Swab positive for white cell, clue and yeast. Diflucan 150 mg p.o. ordered. We offered treatment for possible STD given white cell findings on wet prep but patient would like to wait until cultures are resulted so we will cancel Roce phin and Zithromax and treat outpatient BV with metronidazole and UTI with cephalexin. All of this was discussed with the patient who agrees. If cultures are positive for GC or chlamydia, she will need to be called and treatment initiated. Discharged home with return precautions. Patient verbalized understanding instructions and agreement with plan. Departure Impression Primary Impression: Urinary tract infection Qualified Codes: N30.00 - Acute cystitis without hematuria Additional Impressions: Bacterial vaginosis Yeast vaginitis Disposition: 01 HOME, SELF-CARE Condition: Stable Departure-Patient Inst. Decision time for Depature: 08:23 Referrals: [facility] (PCP/Family) Primary Care Physician Patient Instructions: Vaginal Yeast Infection, Adult ED, Bacterial Vaginosis (DC), Urinary Tract Infection, Adult (DC) Add. Discharge Instructions: All discharge instructions reviewed with patient and/or family. Voiced understanding. Take medications as directed. Follow-up with your doctor later this week for recheck and further evaluation. Return for worse pain, fever, vomiting, weakness, breathing problems or other concerns as needed. You may take Tylenol/acetaminophen 1000 mg every 6 hours as needed for pain. You may take ibuprofen 4 mg every 8 hours as needed for pain. Drink plenty of fluids. You will be called if your GC or chlamydia test (STD tests) are positive. Scripts Metronidazole (Metronidazole) 500 Mg Tablet 500 MG PO BID, #14 TAB 0 Refills Prov: TOBY HUERTA MD 05/07/23 Cephalexin (Cephalexin) 500 Mg Capsule 500 MG PO BID for 7 Days, #14 CAP 0 Refills Prov: TOBY HUERTA MD 05/07/23 TOBY HUERTA MD May 07, 2023 08:24
[2023-05-07 08:30] VITALS: BP 133/82
== END 2023-05-07 08:31 | disposition home or self-care (01) ==
LOC: EDUNIT# 07:05 → ER 07:06
DX: N76.0 Acute vaginitis (principal); B37.31 Acute candidiasis of vulva and vagina; N39.0 Urinary tract infection, site not specified; Z28.310 Unvaccinated for COVID-19
CPT/HCPCS: 36415; 81000; 84703; 87077; 87088; 87186; 87210; 87491; 87591; 99283